=== PATIENT | female | born 1960 | race Caucasian/White ===

== ENCOUNTER 2017-02-23 04:47 | Emergency (ER) | payer BC, OTHER ==
[~2017-02-23] VITALS: Ht 162.6 cm; Wt 98.0 kg
[2017-02-23] MEDS ORDERED: traMADol 50 MG TAB PO ONE (05:45)
[2017-02-23] MEDS ORDERED: MORPHINE 10 MG/ML 1ML VIAL IM ONE (07:00)
[2017-02-23 07:05] LABS: BASO # 0.1 K/mm3 (0.0-0.2); EOS # 0.2 K/mm3 (0.0-0.50); EOS % 2.7 % (0.0-3.0); LARGE UNSTAINED CELL # 0.1 K/mm3 (0.0-0.4); LARGE UNSTAINED CELL % 1.3 % (0.0-4.0); LYMPH # 2.1 K/mm3 (1.5-4.5); LYMPH % 24.3 % (24.0-44.0); MEAN CORPUSCULAR HEMOGLOBIN 30.4 pg (27.0-33.0); MEAN CORPUSCULAR HGB CONC 33.3 g/dl (32.0-36.5); MEAN CORPUSCULAR VOLUME 91.5 fl (80.0-96.0); MONO # 0.4 K/mm3 (0.0-0.8); MONO % 4.4 % (0.0-5.0); NEUTROPHILS # 5.6 K/mm3 (1.8-7.7); NEUTROPHILS % 66.4 % (36.0-66.0); PLATELET COUNT, AUTOMATED 301 k/mm3 (150-450); RED CELL DISTRIBUTION WIDTH 12.5 % (11.5-14.5); WHITE BLOOD COUNT 8.5 K/mm3 (4.0-10.0)
[2017-02-23 07:53] LABS: ALBUMIN 3.4 GM/DL (3.2-5.2); ALBUMIN/GLOBULIN RATIO 0.87 (1.00-1.93); BILIRUBIN,DIRECT 0.1 MG/DL (0.0-0.2); BILIRUBIN,TOTAL 0.5 MG/DL (0.2-1.0); CALCIUM LEVEL 8.6 MG/DL (8.5-10.1); CREATININE FOR GFR 1.03 MG/DL (0.55-1.02); GLOMERULAR FILTRATION RATE 58.8 (>51); POTASSIUM SERUM 4.2 MEQ/L (3.5-5.1); TOTAL PROTEIN 7.3 GM/DL (6.4-8.2)
[2017-02-23] MEDS ORDERED: NORCOTAB PO (08:28)
[2017-02-23 09:55] VITALS: BP 147/82
== END 2017-02-23 09:55 | disposition home or self-care (01) ==
LOC: M ED 05:53
DX: K80.20 Calculus of gallbladder without cholecystitis without obstruction (principal); K76.0 Fatty (change of) liver, not elsewhere classified; K82.8 Other specified diseases of gallbladder

== ENCOUNTER → 2017-04-14 | Outpatient (CLI) | payer OTHER ==
[~2017-04-14] MED LIST: ACET1TAB17 PO; ASPI325T24 PO; LEVO100T5 PO; NORCOTAB PO; SING10TA32 PO
[2017-04-14 12:26] LABS: FREE T4 1.15 NG/DL (0.76-1.46)
== END ==
LOC: M SMT 07:58
PROVIDERS: ATTEND Family Medicine
DX: R73.01 Impaired fasting glucose (principal); E03.9 Hypothyroidism, unspecified

== ENCOUNTER 2017-05-19 03:43 | Emergency (ER) | payer OTHER ==
[~2017-05-19] VITALS: Ht 162.6 cm; Wt 95.0 kg
[~2017-05-19 03:43] MED LIST changes: -ACET1TAB17 PO; -ASPI325T24 PO; -LEVO100T5 PO; -SING10TA32 PO
[2017-05-19 03:48] VITALS: BP 181/111
[2017-05-19] MEDS ORDERED: SING10TA32 PO (03:52)
[2017-05-19] MEDS ORDERED: LEVO100T5 PO (03:52)
[2017-06-19] MEDS ORDERED: ASPI325T24 PO (08:40)
[2017-06-19] MEDS ORDERED: ACET1TAB17 PO (08:40)
== END 2017-05-19 06:10 | disposition left against medical advice (07) ==
LOC: M ED 03:43
DX: R10.9 Unspecified abdominal pain (principal); Z53.29 Procedure and treatment not carried out because of patient's decision for other reasons

== ENCOUNTER → 2017-06-19 | Outpatient (CLI) | payer OTHER ==
[~2017-06-19] MED LIST changes: +ACET1TAB17 PO; +ASPI325T24 PO; +LEVO100T5 PO; +SING10TA32 PO
--- NOTE | 2017-06-20 23:17 | ECGEPIP ---
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
== END ==
LOC: M EKG 17:47
PROVIDERS: ATTEND Anesthesiology
DX: I10 Essential (primary) hypertension (principal)

== ENCOUNTER 2017-06-26 10:27 | Day surgery (SDC) | payer OTHER ==
[~2017-06-26] VITALS: Ht 162.6 cm; Wt 104.3 kg
[2017-06-26] MEDS ORDERED: LR 1,000 ML IV ONE (10:45)
[2017-06-26] MEDS ORDERED: PROPOFOL 200 MG/20 ML VIAL As Ordered ONE (12:26)
[2017-06-26] MEDS ORDERED: dexameTHASONE 4 MG/ML 1ML VIAL (J1100) As Ordered ONE (12:26)
[2017-06-26] MEDS ORDERED: ONDANSETRON 4MG/2ML VIAL (J2405) As Ordered ONE (12:26)
[2017-06-26] MEDS ORDERED: LIDOCAINE 2% INJ 100 MG/5 ML SDV (FOR ANES.) As Ordered ONE (12:26)
[2017-06-26] MEDS ORDERED: ROCURONIUM BROMIDE 50 MG/5 ML VIAL/SYRINGE As Ordered ONE ×2 (12:26→15:05)
[2017-06-26] MEDS ORDERED: MIDAZOLAM INJ 2 MG/2 ML VIAL (J2250) As Ordered ONE (12:26)
[2017-06-26] MEDS ORDERED: fentaNYL 250 MCG/5 ML INJECTION (J3010) As Ordered ONE (12:26)
[2017-06-26] MEDS ORDERED: BUPIVACAINE HCL 0.25% 30 ML VIAL As Ordered ONE (12:58)
[2017-06-26] MEDS ORDERED: SUCCINYLCHOLINE 100 MG/5 ML SYRINGE (J0330) As Ordered ONE (14:10)
[2017-06-26] MEDS ORDERED: NEOSTIGMINE 10 MG/10 ML VIAL (J2710) As Ordered ONE ×2 (14:16→15:30)
[2017-06-26] MEDS ORDERED: GLYCOPYRROLATE INJ 0.2 MG/ML 2 ML VIAL As Ordered ONE ×2 (14:16→15:30)
[2017-06-26] MEDS ORDERED: HYDROmorphone HCL 2 MG/ML 1ML VIAL (J1170) As Ordered ONE (14:29)
[2017-06-26] MEDS ORDERED: LABETALOL HCL 100 MG/20 ML VIAL As Ordered ONE (15:02)
[2017-06-26] MEDS ORDERED: HYDROmorphone HCL 1 MG/ML SYRINGE (J1170) As Ordered ONE (16:17)
[2017-06-26] MEDS: HYDROmorphone HCL 1 MG/ML SYRINGE (J1170) IV PRN ×2 (16:20→16:40)
[2017-06-26] MEDS ORDERED: NORCO, ANEXSIA 5/325MG TABLET (HYDROcodone/ACETAMINOPHEN) PO PRN (16:30)
[2017-06-26] MEDS ORDERED: fentaNYL 100 MCG/2 ML INJECTION (J3010) IV PRN (16:30)
[2017-06-26] MEDS ORDERED: LR 1,000 ML IV SCH (16:30)
[2017-06-26] MEDS ORDERED: IBUPROFEN 600 MG TAB PO PRN (16:30)
[2017-06-26] MEDS ORDERED: PERCOCET 5MG/325MG TAB PO PRN (16:30)
[2017-06-26] MEDS ORDERED: ONDANSETRON 4MG/2ML VIAL (J2405) IV PRN (16:30)
[2017-06-26] MEDS ORDERED: ACETAMINOPHEN TAB 650MG DOSE (2X325MG) PO PRN (16:30)
[2017-06-26] MEDS ORDERED: METOCLOPRAMIDE INJ 10MG/2ML VIAL (J2765) IV PRN (16:30)
[2017-06-26 19:20] VITALS: BP 150/88
--- NOTE | 2017-06-28 11:29 | RO ---
DATE OF PROCEDURE: 06/26/2017 PREOPERATIVE DIAGNOSIS: Symptomatic gallstones. POSTOPERATIVE DIAGNOSIS: Cholelithiasis with chronic cholecystitis and cystic duct obstruction with hydrops of the gallbladder. PROCEDURE PERFORMED: laparoscopic cholecystectomy. SURGEON: Aaron Prescott MD ASSISTANT SIGNAL MAINTAINER: Gumaro Baugh DO, OGME-1 Resident ANESTHESIA: General. INDICATIONS FOR PROCEDURE: The patient is a 56-year-old woman who has been having episodes of right upper quadrant abdominal pain typical for biliary colic. She had an ultrasound that confirmed cholelithiasis and she is now for a laparoscopic cholecystectomy. OPERATIVE PROCEDURE: The patient was placed under general endotracheal anesthesia. The patient's abdomen was prepped and draped in a sterile fashion. 0.25% Marcaine was infiltrated at the trocar sites prior to insertion. A short supraumbilical midline incision was made and deepened through the abundant subcutaneous fat. The fascia was opened in the midline and a Marci cannula was inserted. The abdomen was inflated with carbon dioxide gas. The laparoscope was placed. Initial examination showed a normal-appearing liver. Visualized portions of the small and large bowel appeared normal. Two 5 mm trocars were placed in the right upper quadrant and a third 5 mm trocar was placed in the left upper quadrant. The omental fat and the subhepatic space was depressed inferiorly and the gallbladder was identified. The gallbladder appeared to be thick walled and pale in coloration and not filled. The gallbladder was grasped and elevated. Dissection was begun at the gallbladder neck. Dissection proceeded on both the medial and lateral aspects of the gallbladder neck and the cystic duct was identified. Branches of the cholecystic artery were identified and these were clipped with hemoclips and divided. With dissection, it was clear that the proximal portion of the cystic duct was filled with stones. I elected therefore to carry the dissection further distally to try to get to a point where the cystic duct was clear of stones. This required working distally an additional several centimeters and in this area, there was some scarring identified around the cystic duct. This required further dissection of the cholecystic artery with additional clips placed. Ultimately it was possible to get to a point where the cystic duct seemed to be clear of stone material. The cystic duct was transected with scissors at the distal extent of the duct that seemed to contain debris. The presence of stones within the cystic duct was confirmed and these were dislodged by manipulation with a Maryland clamp and there was a small amount of back flow of bile. The cystic duct stump appeared to be slightly too large at that point to be readily controlled with a hemoclip and it was necessary to place an Endoloop. This proved to be somewhat difficult because of the positioning of the cystic duct stump, but ultimately a #0 Vicryl Endoloop was placed securely around the end of the cystic duct with excellent control. Once this had been accomplished, and it was ensured that there was no bleeding from the cholecystic artery branches, the gallbladder was dissected free from the gallbladder bed using cautery dissection. Toward the fundus the gallbladder was entered and a small amount of clear and colorless fluid was released from the gallbladder confirming a diagnosis of hydrops of the gallbladder consistent with longstanding cystic duct obstruction. Once the gallbladder had been freed, this was placed within an Endopouch. A second small portion of tissue consisting of a segment of the cystic duct was also placed within the pouch. The right upper quadrant was copiously irrigated with saline and inspection showed no evidence of bleeding or bile leak. The patient was returned to a flat position and the abdomen was deflated. The trocars were all removed. The gallbladder was recovered through the Ghotra site and sent for permanent pathology. The fascia at the Ghotra site was closed with interrupted simple sutures of #2-0 Vicryl. The skin incisions were all closed with buried #5-0 Vicryl and Steri-Strips. Light dressings were applied. The patient tolerated the procedure well without apparent complication. She was awakened in the operating room, extubated and moved to the recovery room in stable condition. ALICE
== END 2017-06-26 19:20 | disposition home or self-care (01) ==
LOC: M SDC 10:27
PROVIDERS: ATTEND Surgery
DX: K80.11 Calculus of gallbladder with chronic cholecystitis with obstruction (principal); E03.9 Hypothyroidism, unspecified; I10 Essential (primary) hypertension; F32.9 Major depressive disorder, single episode, unspecified; G43.909 Migraine, unspecified, not intractable, without status migrainosus; E66.01 Morbid (severe) obesity due to excess calories; R73.03 Prediabetes; R06.83 Snoring; Z68.39 Body mass index [BMI] 39.0-39.9, adult; Z79.899 Other long term (current) drug therapy; Z79.82 Long term (current) use of aspirin; Z78.0 Asymptomatic menopausal state
CPT/HCPCS: 47562; 88304; J0330; J1100; J1170; J2250; J2405; J2710; J3010

== ENCOUNTER → 2017-11-14 | Outpatient (CLI) | payer OTHER ==
[2017-11-14 09:54] LABS: MALB URINE SIEMENS 47.7 MG/L; MAU/CREAT RATIO 26.7 MCG/MG (0.0-30.0)
[2017-11-14 09:55] LABS: ANION GAP 8 MEQ/L (8-16); BLOOD UREA NITROGEN 10 MG/DL (7-18); CALCIUM LEVEL 8.4 MG/DL (8.5-10.1); CARBON DIOXIDE LEVEL 25 MEQ/L (21-32); CHLORIDE LEVEL 107 MEQ/L (98-107); CHOLESTEROL LEVEL 229 MG/DL (<200); CREATININE FOR GFR 0.88 MG/DL (0.55-1.30); GLOMERULAR FILTRATION RATE > 60.0 (>51); GLUCOSE, FASTING 162 MG/DL (70-100); HDL CHOLESTEROL 48 MG/DL (>40); NON-HDL-C 181 MG/DL; POTASSIUM SERUM 4.3 MEQ/L (3.5-5.1); SODIUM LEVEL 140 MEQ/L (136-145); TRIGLYCERIDES LEVEL 155 MG/DL (<150)
[2017-11-14 10:43] LABS: ESTIMATED AVERAGE GLUCOSE 177 MG/DL (60-110); HEMOGLOBIN A1c 7.8 %
== END ==
LOC: M LAB 08:16
DX: E03.9 Hypothyroidism, unspecified (principal); E11.69 Type 2 diabetes mellitus with other specified complication; I10 Essential (primary) hypertension; Z13.220 Encounter for screening for lipoid disorders
CPT/HCPCS: 84443

== ENCOUNTER → 2017-12-02 | Outpatient (CLI) | payer OTHER | LOC: M WHC 07:52 | DX: Z12.31 Encounter for screening mammogram for malignant neoplasm of breast (principal); Z78.0 Asymptomatic menopausal state ==

== ENCOUNTER → 2017-12-18 | Outpatient (REF) | payer OTHER | LOC: M SFHCPLAZ 11:25 | DX: Z12.4 Encounter for screening for malignant neoplasm of cervix (principal); N95.2 Postmenopausal atrophic vaginitis | CPT/HCPCS: G0123 ==

== ENCOUNTER → 2017-12-31 | Outpatient (CLI) | payer OTHER ==
[2017-12-31 09:32] LABS: ALBUMIN 3.8 GM/DL (3.2-5.2); ALBUMIN/GLOBULIN RATIO 1.06 (1.00-1.93); ALKALINE PHOSPHATASE 79 U/L (45-117); ALT/SGPT 40 U/L (12-78); AST/SGOT 25 U/L (7-37); BILIRUBIN,DIRECT 0.1 MG/DL (0.0-0.2); BILIRUBIN,TOTAL 0.6 MG/DL (0.2-1.0); TOTAL PROTEIN 7.4 GM/DL (6.4-8.2)
== END ==
LOC: M LAB 08:19
DX: E78.2 Mixed hyperlipidemia (principal)
CPT/HCPCS: 80076

== ENCOUNTER → 2018-02-22 | Outpatient (CLI) | payer OTHER | LOC: M LAB 07:38 | DX: E03.9 Hypothyroidism, unspecified (principal) ==

== ENCOUNTER 2018-07-07 18:18 | Emergency (ER) | payer OTHER ==
[2018-07-07] MEDS: ALBUTEROL SULFATE 2.5 MG/0.5 ML INH NEB SOLN NEB (21:20)
[2018-07-07] MEDS: DOXYCYCLINE HYCLATE 100 MG TAB PO (21:56)
== END 2018-07-07 22:05 | disposition home or self-care (01) ==
LOC: M ED 18:18
DX: J18.1 Lobar pneumonia, unspecified organism (principal); H66.93 Otitis media, unspecified, bilateral; R73.03 Prediabetes; I10 Essential (primary) hypertension; E78.5 Hyperlipidemia, unspecified; E03.9 Hypothyroidism, unspecified; Z87.442 Personal history of urinary calculi; Z79.82 Long term (current) use of aspirin; Z79.84 Long term (current) use of oral hypoglycemic drugs; Z79.899 Other long term (current) drug therapy
CPT/HCPCS: 71046

== ENCOUNTER 2018-07-27 15:35 | Emergency (ER) | payer OTHER ==
[2018-07-27] MEDS: BENZONATATE 100 MG CAP PO (17:17)
[2018-07-27] MEDS: METHOCARBAMOL 750 MG TAB PO (17:17)
[2018-07-27] MEDS: NAPROXEN 250 MG TAB PO (17:18)
[2018-07-27 17:38] LABS: BASO # 0.1 10^3/uL (0.0-0.2); BASO % 0.8 % (0.0-1.0); EOS # 0.6 10^3/uL (0.0-0.50); HEMATOCRIT 46.3 % (36.0-47.0); HEMOGLOBIN 15.3 g/dl (12.0-15.5); IMMATURE GRANULOCYTE % 0.4 % (0-3.0); LYMPH # 3.4 10^3/uL (1.5-4.5); LYMPH % 30.1 % (24.0-44.0); MEAN CORPUSCULAR HEMOGLOBIN 29.2 pg (27.0-33.0); MEAN CORPUSCULAR VOLUME 88.4 fl (80.0-96.0); MONO # 0.8 10^3/uL (0.0-0.8); MONO % 7.4 % (0.0-5.0); NEUTROPHILS # 6.3 10^3/uL (1.8-7.7); NEUTROPHILS % 56.3 % (36.0-66.0); PLATELET COUNT, AUTOMATED 358 10^3/uL (150-450); RED BLOOD COUNT 5.24 10^6/uL (4.00-5.40); RED CELL DISTRIBUTION WIDTH 13.2 % (11.5-14.5); WHITE BLOOD COUNT 11.1 10^3/uL (4.0-10.0)
[2018-07-27 17:56] LABS: ANION GAP 10 MEQ/L (8-16); BLOOD UREA NITROGEN 10 MG/DL (7-18); CALCIUM LEVEL 8.9 MG/DL (8.5-10.1); CARBON DIOXIDE LEVEL 25 MEQ/L (21-32); CHLORIDE LEVEL 101 MEQ/L (98-107); CREATININE FOR GFR 0.92 MG/DL (0.55-1.30); GLOMERULAR FILTRATION RATE > 60.0 (>51); GLUCOSE, FASTING 136 MG/DL (70-100); SODIUM LEVEL 136 MEQ/L (136-145)
== END 2018-07-27 18:54 | disposition home or self-care (01) ==
LOC: M ED 15:35
DX: J06.9 Acute upper respiratory infection, unspecified (principal); S39.012A Strain of muscle, fascia and tendon of lower back, initial encounter; X58.XXXA Exposure to other specified factors, initial encounter; Y92.89 Other specified places as the place of occurrence of the external cause; E11.9 Type 2 diabetes mellitus without complications; I10 Essential (primary) hypertension; E03.9 Hypothyroidism, unspecified; R51 Headache; Z87.442 Personal history of urinary calculi; Z79.899 Other long term (current) drug therapy; Z79.84 Long term (current) use of oral hypoglycemic drugs
CPT/HCPCS: 71046

== ENCOUNTER → 2018-11-19 | Outpatient (REF) | payer OTHER ==
[~2018-11-19] MED LIST changes: -ACET1TAB17 PO; +ACET1TAB55 PO; -ASPI325T24 PO; +ASPI325T25 PO; +ATOR1TAB21; +CHERSYP3 PO; +DOXY100C37 PO; +LISI10TA4; +METF-839; +NAPR-50 PO; +ROBA500T PO; +TESS100C PO; +VENTAER INH
[2018-11-19 18:55] LABS: BLOOD UREA NITROGEN 10 MG/DL (7-18); CALCIUM LEVEL 8.3 MG/DL (8.5-10.1); CARBON DIOXIDE LEVEL 28 MEQ/L (21-32); CHLORIDE LEVEL 101 MEQ/L (98-107); GLOMERULAR FILTRATION RATE > 60.0 (>51); GLUCOSE, FASTING 159 MG/DL (70-100); POTASSIUM SERUM 4.3 MEQ/L (3.5-5.1); SODIUM LEVEL 137 MEQ/L (136-145)
[2018-11-19 19:01] LABS: HEMOGLOBIN A1c 8.4 %
[2018-11-19 19:13] LABS: MAU/CREAT RATIO 41.2 MCG/MG (0.0-30.0)
== END ==
LOC: M SFHCPLAZ 15:25
PROVIDERS: ATTEND Family Medicine
DX: E11.69 Type 2 diabetes mellitus with other specified complication (principal); I10 Essential (primary) hypertension; E03.9 Hypothyroidism, unspecified

== ENCOUNTER → 2019-02-06 | Outpatient (REF) | payer OTHER ==
[~2019-02-06] MED LIST changes: +ASPI-255 PO; -ASPI325T25 PO; +HYDR-3715 PO; -NAPR-50 PO; +NAPR-837 PO; -NORCOTAB PO
== END ==
LOC: M LAB REF 10:36
PROVIDERS: ATTEND Physician Assistant
DX: N39.0 Urinary tract infection, site not specified (principal)

== ENCOUNTER → 2019-04-28 | Outpatient (CLI) | payer OTHER ==
--- NOTE | 2019-04-28 18:49 | REP ---
REASON: Low back pain. Six views of the cervical spine were obtained. There is mild disc space narrowing at every level. Vertebral body height and alignment is within normal limits. There is minimal anterior lipping at every level. There is no evidence of spondylolysis or spondylolisthesis. The pedicles are intact bilaterally. IMPRESSION: Discogenic changes as described above. Electronically Signed by Jasbir Carrington DO 04/28/2019 07:37 P
== END ==
LOC: M ADAMS 17:34
PROVIDERS: ATTEND Physician Assistant Medical
DX: M51.37 Other intervertebral disc degeneration, lumbosacral region (principal); M54.5 Low back pain

== ENCOUNTER → 2019-05-06 | Outpatient (REF) | payer OTHER ==
[2019-05-06 17:02] LABS: MALB URINE SIEMENS 36.1 MG/L; MAU/CREAT RATIO 14.9 MCG/MG (0.0-30.0)
[2019-05-06 17:31] LABS: HEMOGLOBIN A1c 8.6 %
== END ==
LOC: M SFHCPLAZ 14:21
PROVIDERS: ATTEND Family Medicine
DX: E11.69 Type 2 diabetes mellitus with other specified complication (principal); E03.9 Hypothyroidism, unspecified

== ENCOUNTER → 2019-08-04 | Outpatient (CLI) | payer OTHER ==
[2019-08-04 18:03] LABS: HEMOGLOBIN A1c 7.8 %
== END ==
LOC: M LAB 16:49
PROVIDERS: ATTEND Family Medicine
DX: E11.69 Type 2 diabetes mellitus with other specified complication (principal)

== ENCOUNTER → 2019-12-05 | Outpatient (CLI) | payer OTHER ==
[2019-12-05 07:24] LABS: HEMOGLOBIN A1c 7.3 %
[2019-12-05 07:39] LABS: BLOOD UREA NITROGEN 14 MG/DL (7-18); CALCIUM LEVEL 8.7 MG/DL (8.8-10.2); CARBON DIOXIDE LEVEL 27 MEQ/L (21-32); CHLORIDE LEVEL 106 MEQ/L (98-107); CREATININE FOR GFR 0.92 MG/DL (0.55-1.30); GLOMERULAR FILTRATION RATE > 60.0 (>45); GLUCOSE, FASTING 135 MG/DL (70-100); POTASSIUM SERUM 4.3 MEQ/L (3.5-5.1); SODIUM LEVEL 138 MEQ/L (136-145); THYROID STIMULATING HORMONE 0.073 uIU/ML (0.358-3.740)
== END ==
LOC: M LAB 06:25
PROVIDERS: ATTEND Family Medicine
DX: E11.9 Type 2 diabetes mellitus without complications (principal)

== ENCOUNTER → 2020-02-21 | Outpatient (CLI) | payer OTHER ==
[~2020-02-21] MED LIST changes: -ATOR1TAB21; +ATOR1TAB21 PO; +LEXA1TAB PO; -METF-839; +METF-839 PO; +TRUL10IN SC
== END ==
LOC: M LABSMTC 11:59
PROVIDERS: ATTEND Anesthesiology
DX: Z03.818 Encounter for observation for suspected exposure to other biological agents ruled out (principal); Z11.59 Encounter for screening for other viral diseases
CPT/HCPCS: C9803; U0003

== ENCOUNTER 2020-02-24 06:48 | Day surgery (SDC) | payer OTHER ==
[~2020-02-24] VITALS: Ht 160 cm; Wt 103.0 kg
[~2020-02-24 06:48] MED LIST changes: +NS 1,000 ML IV ONE
[2020-02-24] MEDS ORDERED: propofoL 200 MG/20 ML VIAL As Ordered ONE (07:09)
[2020-02-24] MEDS ORDERED: LIDOCAINE 2% 100MG/5ML SDV (FOR ANES.) As Ordered ONE (07:09)
--- NOTE | 2020-02-24 08:36 | ROOR ---
Patient Name: Joy Wheeler Procedure Date: 02/24/2020 7:58 AM Date of : 1960 Age: 59 Room: [facility] Gender: Female Note Status: Finalized Procedure: Colonoscopy Indications: Screening for colorectal malignant neoplasm Providers: Bandar Neal MD Referring MD: Leighann Ellis MD Requesting Provider: Medicines: Monitored Anesthesia Care Complications: No immediate complications. Procedure: Pre-Anesthesia Assessment: - Prior to the procedure, a History and Physical was performed, and patient medications and allergies were reviewed. The patient is competent. The risks and benefits of the procedure and the sedation options and risks were discussed with the patient. All questions were answered and informed consent was obtained. Patient identification and proposed procedure were verified by the physician, the nurse and the anesthesiologist in the procedure room. Mental Status Examination: alert and oriented. Airway Examination: normal oropharyngeal airway and neck mobility. Respiratory Examination: clear to auscultation. CV Examination: normal. Prophylactic Antibiotics: The patient does not require prophylactic antibiotics. Prior Anticoagulants: The patient has taken no previous anticoagulant or antiplatelet agents. ASA Grade Assessment: III - A patient with severe systemic disease. After reviewing the risks and benefits, the patient was deemed in satisfactory condition to undergo the procedure. The anesthesia plan was to use monitored anesthesia care (MAC). Immediately prior to administration of medications, the patient was re-assessed for adequacy to receive sedatives. The heart rate, respiratory rate, oxygen saturations, blood pressure, adequacy of pulmonary ventilation, and response to care were monitored throughout the procedure. The physical status of the patient was re-assessed after the procedure. The Colonoscope was introduced through the anus and advanced to the terminal ileum, with identification of the appendiceal orifice and IC valve. The colonoscopy was performed without difficulty. The patient tolerated the procedure well. The quality of the bowel preparation was good. The terminal ileum, ileocecal valve, appendiceal orifice, and rectum were photographed. Scope insertion time was 3 minutes. Scope withdrawal time was 8 minutes. The total duration of the procedure was 12 minutes. Findings: The perianal and digital rectal examinations were normal. The terminal ileum appeared normal. Four sessile polyps were found in the recto-sigmoid colon and transverse colon. The polyps were 5 to 8 mm in size. These polyps were removed with a cold snare. Resection and retrieval were complete. Verification of patient identification for the specimen was done by the physician and nurse using the patient's name, date and medical record number. Estimated blood loss was minimal. Non-bleeding external and internal hemorrhoids were found during retroflexion. The hemorrhoids were medium-sized. Impression: - The examined portion of the ileum was normal. - Four 5 to 8 mm polyps at the recto-sigmoid colon and in the transverse colon, removed with a cold snare. Resected and retrieved. - Non-bleeding external and internal hemorrhoids. Recommendation: - Patient has a contact number available for emergencies. The signs and symptoms of potential delayed complications were discussed with the patient. Return to normal activities tomorrow. Written discharge instructions were provided to the patient. - High fiber diet. - Continue present medications. - Await pathology results. - Repeat colonoscopy in 3 - 5 years for surveillance. - Telephone GI clinic for pathology results in 2 weeks. - Return to primary care physician. Bandar Neal MD Bandar Neal MD 02/24/2020 8:36:21 AM Electronically signed by Bandar Neal MD Number of Addenda: 0 Note Initiated On: 02/24/2020 7:58 AM Estimated Blood Loss: Estimated blood loss was minimal.
[2020-02-24 08:50] VITALS: BP 138/74
== END 2020-02-24 08:56 | disposition home or self-care (01) ==
LOC: M OPP 06:48
PROVIDERS: ATTEND Internal Medicine Gastroenterology
DX: Z12.11 Encounter for screening for malignant neoplasm of colon (principal); K63.5 Polyp of colon; K64.8 Other hemorrhoids; I10 Essential (primary) hypertension; E11.9 Type 2 diabetes mellitus without complications; E03.9 Hypothyroidism, unspecified; Z79.899 Other long term (current) drug therapy

== ENCOUNTER → 2020-05-27 | Outpatient (CLI) | payer OTHER ==
[~2020-05-27] MED LIST changes: -NS 1,000 ML IV ONE
== END ==
LOC: M LABSMTC 10:26
PROVIDERS: ATTEND Anesthesiology
DX: Z01.818 Encounter for other preprocedural examination (principal); Z11.59 Encounter for screening for other viral diseases; Z20.828 Contact with and (suspected) exposure to other viral communicable diseases
CPT/HCPCS: C9803; U0003

== ENCOUNTER → 2020-05-31 | Day surgery (SDC) | payer OTHER ==
[~2020-05-31] VITALS: Ht 160 cm; Wt 107.5 kg
[~2020-05-31] MED LIST changes: +BSS IRR 500ML/OMIDRIA 4ML IRR BAG (OR ONLY) (J1097 PER ML) As Ordered ONE; +CEFUROXIME 1MG/0.1ML INTRACAMERAL INJ As Ordered ONE; +DUOVISC (0.50ML VISCOAT/0.55ML PROVISC) OPHTH KIT As Ordered ONE; +MIDAZOLAM INJ 2MG/2ML VIAL (J2250 PER 1MG) As Ordered ONE; +OFLOXACIN 0.3 % (OCUFLOX) OPTH SOL 5ML As Ordered ONE; +OFLOXACIN 0.3 % (OCUFLOX) OPTH SOL 5ML OS ONE; +PHENYLEPHRINE 2.5% OPHTH SOL 2ML OS ONE; +POVIDONE-IODINE 5% OPHTH PREP SOL 30ML As Ordered ONE; +PROPARACAINE 0.5% OPHTH SOL 15ML OS ONE; +TROPICAMIDE 1% OPHTH SOLN 2ML As Ordered ONE; +TROPICAMIDE 1% OPHTH SOLN 2ML OS ONE; +fentaNYL 250 MCG/5 ML INJECTION (J3010) As Ordered ONE; +hydrALAZINE 20MG/ML 1ML VIAL (J0360 PER 20MG) As Ordered ONE
[2020-05-31 09:50] VITALS: BP 140/65
== END | disposition home or self-care (01) ==
LOC: M SDC 06:53
PROVIDERS: ATTEND Ophthalmology
DX: H25.12 Age-related nuclear cataract, left eye (principal); E03.9 Hypothyroidism, unspecified; E11.9 Type 2 diabetes mellitus without complications; E66.9 Obesity, unspecified; G43.909 Migraine, unspecified, not intractable, without status migrainosus; I10 Essential (primary) hypertension; M12.9 Arthropathy, unspecified; R06.83 Snoring; Z68.41 Body mass index [BMI] 40.0-44.9, adult; Z78.0 Asymptomatic menopausal state; Z79.84 Long term (current) use of oral hypoglycemic drugs; Z79.899 Other long term (current) drug therapy; Z96.1 Presence of intraocular lens; Z98.41 Cataract extraction status, right eye
CPT/HCPCS: 66984; J0360; J1097; J2250; J3010

== ENCOUNTER → 2020-10-12 | Outpatient (CLI) | payer SELFPAY ==
[~2020-10-12] MED LIST changes: -BSS IRR 500ML/OMIDRIA 4ML IRR BAG (OR ONLY) (J1097 PER ML) As Ordered ONE; -CEFUROXIME 1MG/0.1ML INTRACAMERAL INJ As Ordered ONE; -DUOVISC (0.50ML VISCOAT/0.55ML PROVISC) OPHTH KIT As Ordered ONE; -MIDAZOLAM INJ 2MG/2ML VIAL (J2250 PER 1MG) As Ordered ONE; -OFLOXACIN 0.3 % (OCUFLOX) OPTH SOL 5ML As Ordered ONE; -OFLOXACIN 0.3 % (OCUFLOX) OPTH SOL 5ML OS ONE; -PHENYLEPHRINE 2.5% OPHTH SOL 2ML OS ONE; -POVIDONE-IODINE 5% OPHTH PREP SOL 30ML As Ordered ONE; -PROPARACAINE 0.5% OPHTH SOL 15ML OS ONE; -TROPICAMIDE 1% OPHTH SOLN 2ML As Ordered ONE; -TROPICAMIDE 1% OPHTH SOLN 2ML OS ONE; -fentaNYL 250 MCG/5 ML INJECTION (J3010) As Ordered ONE; -hydrALAZINE 20MG/ML 1ML VIAL (J0360 PER 20MG) As Ordered ONE
== END ==
LOC: M LABSMTC 12:20
PROVIDERS: ATTEND Pediatrics
DX: Z20.822 Contact with and (suspected) exposure to COVID-19 (principal)

== ENCOUNTER → 2021-04-05 | Outpatient (CLI) | payer OTHER ==
[~2021-04-05] MED LIST changes: -DOXY100C37 PO; +DOXY1CAP62 PO; +LISI10TA22; -LISI10TA4
[2021-04-05 15:48] LABS: BLOOD UREA NITROGEN 9 MG/DL (7-18); CALCIUM LEVEL 8.5 MG/DL (8.8-10.2); CARBON DIOXIDE LEVEL 31 MEQ/L (21-32); CHLORIDE LEVEL 100 MEQ/L (98-107); CREATININE FOR GFR 0.93 MG/DL (0.55-1.30); GLOMERULAR FILTRATION RATE > 60.0 (>45); GLUCOSE, FASTING 141 MG/DL (70-100); POTASSIUM SERUM 4.3 MEQ/L (3.5-5.1); SODIUM LEVEL 137 MEQ/L (136-145)
[2021-04-05 16:04] LABS: HEMOGLOBIN A1c 7.8 %
[2021-04-05 16:29] LABS: MALB URINE SIEMENS 22.7 MG/L; MAU/CREAT RATIO 9.3 MCG/MG (0.0-30.0)
== END ==
LOC: M PLALAB 12:58
PROVIDERS: ATTEND Family Medicine
DX: I10 Essential (primary) hypertension (principal); E11.69 Type 2 diabetes mellitus with other specified complication

== ENCOUNTER → 2021-06-07 | Outpatient (CLI) | payer OTHER | LOC: M LABSMTC 11:13 | PROVIDERS: ATTEND Pediatrics | DX: Z20.828 Contact with and (suspected) exposure to other viral communicable diseases (principal); Z11.59 Encounter for screening for other viral diseases | CPT/HCPCS: C9803; U0003 ==

== ENCOUNTER 2021-06-18 17:33 | Inpatient (IN) | payer OTHER ==
[~2021-06-18] VITALS: Ht 162.6 cm; Wt 103.6 kg
[~2021-06-18 17:33] MED LIST changes: +DOXY-443 PO; -DOXY1CAP62 PO
[2021-06-18] MEDS ORDERED: ACETAMINOPHEN 325 MG TAB PO ONE (17:50)
[2021-06-18 18:23] LABS: VENOUS BASE EXCESS -3.1 (-2.0-2.0); VENOUS HCO3 20.8 MEQ/L (23.0-27.0); VENOUS O2 SATURATION 57.3 % (60.0-80.0); VENOUS PARTIAL PRESSURE CO2 34.3 mmHg (38.0-50.0); VENOUS PARTIAL PRESSURE O2 32.1 mmHg (30.0-50.0); VENOUS PH 7.401 UNITS (7.330-7.430); VENOUS STANDARD HCO3 20.9 MEQ/L; VENOUS TOTAL CO2 21.9 MEQ/L (24.0-28.0)
--- NOTE | 2021-06-18 18:37 | REP ---
INDICATION: Coronavirus workup COMPARISON: 07/27/2018 TECHNIQUE: Portable AP view of the chest FINDINGS: Diffuse bilateral infiltrates consistent with COVID-19 pulmonary disease. No obvious effusion or pneumothorax. Cardiac silhouette is normal for portable technique. IMPRESSION: Diffuse bilateral infiltrates consistent with COVID-19 pulmonary disease. <Electronically signed by Shaheen Bustos > 06/18/21 [id number]
[2021-06-18 18:53] LABS: FIBRINOGEN 633 MG/DL (268-480); INR 1.14
[2021-06-18 18:54] LABS: PARTIAL THROMBOPLASTIN TIME 29.1 SECONDS (25.9-37.0)
[2021-06-18] MEDS ORDERED: AZITHROMYCIN INJ 500 MG, VIAL MATE ADAPTER 1 EACH in NS 250 ML IV ONE (19:00)
[2021-06-18] MEDS ORDERED: cefTRIAXone SOD 1 GM in D5W MINI-BAG PLUS 50 ML IV ONE (19:00)
[2021-06-18 19:08] LABS: ALBUMIN 2.5 GM/DL (3.2-5.2); ALT/SGPT 80 U/L (12-78); BLOOD UREA NITROGEN 13 MG/DL (7-18); CALCIUM LEVEL 8.7 MG/DL (8.8-10.2); CARBON DIOXIDE LEVEL 26 MEQ/L (21-32); CHLORIDE LEVEL 100 MEQ/L (98-107); CK-MB VALUE MASS < 1.0 NG/ML (<3.6); CPK CREATINE PHOSPHOKINASE 114 U/L (26-192); CREATININE FOR GFR 1.19 MG/DL (0.55-1.30); FERRITIN 1360 NG/ML (8-252); GLOMERULAR FILTRATION RATE 49.1 (>45); GLUCOSE, FASTING 239 MG/DL (70-100); LDH LACTATE DEHYDROGENASE 702 U/L (84-246); MAGNESIUM LEVEL 2.1 MG/DL (1.8-2.4); MB/CK RELATIVE INDEX 0.88 (< OR =4); POTASSIUM SERUM 3.9 MEQ/L (3.5-5.1); SODIUM LEVEL 134 MEQ/L (136-145); TOTAL PROTEIN 7.1 GM/DL (6.4-8.2); TROPONIN I < 0.02 NG/ML (< 0.10)
[2021-06-18 20:10] LABS: D-DIMER QUANT > 4000.0 ng/ml (<500)
[2021-06-18 20:32] LABS: BASO # 0.1 10^3/uL (0.0-0.2); BASO % 0.3 % (0.0-1.0); EOS % 0.2 % (0.0-3.0); HEMATOCRIT 41.2 % (36.0-47.0); HEMOGLOBIN 13.9 g/dl (12.0-15.5); LYMPH # 0.9 10^3/uL (1.5-5.0); LYMPH % 5.3 % (24.0-44.0); MEAN CORPUSCULAR HEMOGLOBIN 29.7 pg (27.0-33.0); MEAN CORPUSCULAR HGB CONC 33.7 g/dl (32.0-36.5); MONO # 0.4 10^3/uL (0.0-0.8); MONO % 2.5 % (2.0-8.0); NEUTROPHILS # 15.4 10^3/uL (1.5-8.5); NEUTROPHILS % 89.8 % (36.0-66.0); PLATELET COUNT, AUTOMATED 314 10^3/uL (150-450); RED BLOOD COUNT 4.68 10^6/uL (4.00-5.40); WHITE BLOOD COUNT 17.1 10^3/uL (4.0-10.0)
[2021-06-18] MEDS ORDERED: HumaLOG INSULIN (NovoLOG) PER UNIT SC SCH (21:00)
[2021-06-18] MEDS ORDERED: MAALOX 30 ML SUSP *UDC PO PRN (21:40)
[2021-06-18] MEDS ORDERED: MOM 30ML SUSPENSION UDC PO PRN (21:40)
--- NOTE | 2021-06-18 21:42 | HPEPDOC ---
[facility] Medical History & Physical Date of Admission Jun 18, 2021 Date of Service: Jun 18, 2021 Primary Care Physician: FRANCO DUNN MD Attending Physician: ROWENA NUNES MD History and Physical TIME OF SERVICE: 1140PM CHIEF COMPLAINT: DYSPNEA HISTORY OF PRESENT ILLNESS: was not diagnosed against COVID-19; on Jun 07 she was diagnosed with COVID. Today she was brought to the ER EMS for evaluation of shortness of breath; her initial O2 sats were in the 80s on RA therefore she was started on CPAP en route to the hospital. At the time of my assessment she was also c/o cough, chest pain and diarrhea. She denies vomiting, losing her sense of taste, or having swelling of her legs. Her boyfriend also has COVID. REVIEW OF SYSTEMS: 10-point review of systems negative except as listed in HPI PAST MEDICAL/ SURGICAL HISTORY: Migraines, essential HTN, Depression, hypothyroidism, nephrolithiasis, cataracts, NIDDM, DLP, Chronic HFpEF (grade 1), Class 1 obesity, C-sections x 2, cholecystectomy, cataract surgery (left eye) FAMILY HISTORY: Father - CKD, [place], CVA / Mother CKD, HTN, DM SOCIAL HISTORY: She doesnt smoke or use alcohol ALLERGIES: Please see below. HOME MEDICATIONS: Please see below. PHYSICAL EXAMINATION: Vital Signs Date Time Temp Pulse Resp B/P (MAP) Pulse Ox O2 Delivery O2 Flow Rate FiO2 06/18/21 18:03 92 06/18/21 18:04 101.4 24 178/98 (124) 93 Non-Rebreather 15.0 06/18/21 18:46 100 GENERAL APPEARANCE: well-nourished and developed/ listless HEENT: EOMI / MMM&P / NC in place CARDIOVASCULAR: RRR/NMRG LUNGS: CTAB on RA ABDOMEN: contour convex/ soft & NT w palpation MUSCULOSKELETAL: NCAT / JEANINE x 4 extremities INTEGUMENT: NEUROLOGICAL: CN 2-12 grossly intact / speech not dysarthric PSYCHIATRIC: A&O x 3 / able to understand and follow all commands LABORATORY DATA: IMAGING: Chest xray IMPRESSION: Diffuse bilateral infiltrates consistent with COVID-19 pulmonary disease. MICROBIOLOGY: Respiratory panel + COVID 19 ASSESSMENT: is a 60 yr old F w Migraines, essential HTN, Depression, hypothyroidism, nephrolithiasis, cataracts, NIDDM, DLP, Chronic HFpEF (grade 1) admitted for sepsis & hypoxemia 2/2 COVID 19 PNA. PLAN: 1 Sepsis 2/2 COVID 19 SIRS criteria: Temp >101 / WBC >12 Plan: admit to medical floor / telemetry / Acetaminophen PRN for fever / IVF target MAP at of least 65 to 70 / f/u Is and Os with target UOP of at least 0.5 ml/kg/H / f/u FSBS w target serum glucose 140-180 while acutely ill / no abx bc the cause is viral 2 Hypoxemia 2/2 COVID 19 PNA Plan: continuous pulse ox / supplemental O2 (target O2 sats between 92-95%) / contact & air borne precautions / bc her D-DIMER >5000 will check CTA to r/o PE / c/w dexamethasone / she is out of the window for Remdesivir / the day time team can call Pulm or ID to discuss Baricitinb 3 Migraines Plan: monitor 4 essential HTN / Chronic HFpEF (grade 1) Plan: resume home meds 5 Depression Plan: resume home meds 6 hypothyroidism Plan: resume home meds 7 NIDDM Plan: diabetic diet / f/u accuchecks / / hypoglycemia protocol / sliding scale insulin / hold oral anti-glycemic / f/u A1C (target A1C is <7 to 6.5% ) 8 Class 1 obesity Complicates care DVT px w lovenox and ASA Dispo: home after at least 2 midnights stay Home Medications Scheduled Atorvastatin Calcium (Atorvastatin Calcium) 20 Mg Tab, 20 MG PO DAILY Dulaglutide (Trulicity) 1.5 Mg/0.5 Ml Pen.injctr, 1.5 MG SC QWEEK SUNDAYS Escitalopram Oxalate (Lexapro) 20 Mg Tablet, 20 MG PO DAILY Levothyroxine Sodium (Levothyroxine Sodium) 100 Mcg Tab, 100 MCG PO DAILY Montelukast Sodium (Singulair) 10 Mg Tab, 10 MG PO QHS Allergies Coded Allergies: No Known Allergies (Unverified , 06/19/17) A-FIB/CHADSVASC A-FIB History Current/History of A-Fib/PAF?: No Current PO Anticoag Therapy: No ROWENA NUNES MD Jun 18, 2021 21:42
[2021-06-18] MEDS ORDERED: TRUL0.5I SC (22:08)
[2021-06-18] MEDS ORDERED: LEXA1TAB2 PO (22:08)
[2021-06-18] MEDS ORDERED: HOME MED LIST COMPLETE! XX SCH (22:10)
[2021-06-18] MEDS ORDERED: NS 1,000 ML IV ONE (22:40)
[2021-06-18] MEDS ORDERED: GLUCOSE 4GM CHEW TABLET PO PRN (23:20)
[2021-06-18] MEDS ORDERED: GLUCAGON INJ 1MG VIAL SC PRN (23:20)
[2021-06-18] MEDS ORDERED: DEXTROSE 50% 50 ML SYRINGE IV PRN (23:20)
[2021-06-18] MEDS ORDERED: ISOVUE-370 76% 100ML VIAL As Ordered ONE (23:22)
[2021-06-19] MEDS: MONTELUKAST 10 MG TAB PO SCH ×2 (00:44→19:57)
[2021-06-19] MEDS ORDERED: NS 1,000 ML IV SCH (03:00)
[2021-06-19 04:15] VITALS: BP 135/72
--- NOTE | 2021-06-19 05:38 | REPVR ---
PROCEDURE INFORMATION: Exam: CTA Chest With Contrast Exam date and time: 06/18/2021 10:53 PM Age: 60 years old Clinical indication: Shortness of breath; Additional info: Dyspnea in PT w elevated d-dimer and covid R/O pe TECHNIQUE: Imaging protocol: Computed tomographic angiography of the chest with contrast. 3D rendering (Not supervised by radiologist): MIP and/or 3D reconstructed images were created by the technologist. Radiation optimization: All CT scans at this facility use at least one of these dose optimization techniques: automated exposure control; mA and/or kV adjustment per patient size (includes targeted exams where dose is matched to clinical indication); or iterative reconstruction. Contrast material: ISO; Contrast volume: 75 ml; Contrast route: INTRAVENOUS (IV); COMPARISON: CR PORTABLE CHEST X-RAY 06/18/2021 6:11 PM FINDINGS: Pulmonary arteries: Normal. No pulmonary emboli. Aorta: Unremarkable. No aortic aneurysm. No aortic dissection. Lungs: There is extensive diffuse bilateral lung infiltrates some ground-glass and some dense. Pleural spaces: Unremarkable. No pneumothorax. No pleural effusion. Heart: Unremarkable. No cardiomegaly. No pericardial effusion. Lymph nodes: Unremarkable. No enlarged lymph nodes. Liver: The liver is hypoattenuated. Gallbladder and bile ducts: The patient is status post cholecystectomy. Bones/joints: Unremarkable. No acute fracture. Soft tissues: Unremarkable. IMPRESSION: 1. No CT evidence of pulmonary embolism or right heart strain. 2. Extensive diffuse bilateral lung infiltrates.Imaging features can be seen with COVID-19 pneumonia, though are nonspecific and can occur with a variety of infectious and noninfectious processes. (Reference: Abiodun) 3. Fatty infiltration of the liver. REFERENCES: Abiodun Castillo et al., [employer] Society of [place] Expert Consensus Statement on Reporting Chest CT Findings Related to COVID-19. Endorsed by the Society of Thoracic Radiology, the [place] [employer], and RSNA. Published December 07, 2019. Electronically signed by: Bernard Soto On 06/19/2021 05:37:59 AM
[2021-06-19 05:51] LABS: BASO % 0.3 % (0.0-1.0); HEMATOCRIT 43.6 % (36.0-47.0); HEMOGLOBIN 14.4 g/dl (12.0-15.5); LYMPH % 7.6 % (24.0-44.0); MEAN CORPUSCULAR HEMOGLOBIN 29.2 pg (27.0-33.0); MEAN CORPUSCULAR VOLUME 88.4 fl (80.0-96.0); MONO # 0.3 10^3/uL (0.0-0.8); MONO % 2.3 % (2.0-8.0); PLATELET COUNT, AUTOMATED 321 10^3/uL (150-450); RED BLOOD COUNT 4.93 10^6/uL (4.00-5.40); WHITE BLOOD COUNT 13.7 10^3/uL (4.0-10.0)
[2021-06-19 06:13] LABS: HEMOGLOBIN A1c 8.5 %
[2021-06-19 06:19] LABS: CALCIUM LEVEL 8.3 MG/DL (8.8-10.2); CREATININE FOR GFR 1.1 MG/DL (0.55-1.30); GLOMERULAR FILTRATION RATE 53.8 (>45); MAGNESIUM LEVEL 2.4 MG/DL (1.8-2.4); POTASSIUM SERUM 4.4 MEQ/L (3.5-5.1)
[2021-06-19] MEDS ORDERED: HumaLOG INSULIN (NovoLOG) PER UNIT SC SCH (07:30)
[2021-06-19 08:21] VITALS: BP 170/90
--- NOTE | 2021-06-19 08:38 | REP ---
INDICATION: Hypoxia COMPARISON: 06/18/2021 TECHNIQUE: Portable AP view of the chest FINDINGS: Mediastinum and cardiac silhouette are stable. Diffuse bilateral infiltrates are again noted and essentially unchanged when allowing for variation in technique. No obvious effusion or pneumothorax. IMPRESSION: Diffuse significant bilateral multifocal infiltrates essentially unchanged. <Electronically signed by Shaheen Bustos > 06/19/21 08
[2021-06-19 08:42] LABS: ALBUMIN 2.1 GM/DL (3.2-5.2); BILIRUBIN,DIRECT 0.2 MG/DL (0.0-0.2); BILIRUBIN,TOTAL 0.6 MG/DL (0.2-1.0); TOTAL PROTEIN 7.1 GM/DL (6.4-8.2)
[2021-06-19] MEDS: ATORVASTATIN 20 MG TAB PO SCH (08:53)
[2021-06-19] MEDS: ASPIRIN 81MG ENTERIC TABLET PO SCH (08:53)
[2021-06-19] MEDS: dexameTHASONE 4 MG/ML 1ML VIAL (J1100 PER 1MG) IV SCH (08:53)
[2021-06-19] MEDS: LEVOTHYROXINE 100MCG TABLET (0.1MG) PO SCH (08:54)
[2021-06-19] MEDS: ESCITALOPRAM OXALATE 10 MG TAB (LEXAPRO) PO SCH (08:54)
[2021-06-19] MEDS: ENOXAPARIN 60MG/0.6ML SYRINGE (J1650 PER 10MG) SC SCH ×2 (08:54→19:57)
[2021-06-19] MEDS ORDERED: ALBUTEROL 90 MCG/ACT 8GM HFA INHALER INH PRN (08:55)
[2021-06-19] MEDS ORDERED: ENOXAPARIN 40MG/0.4ML SYRINGE (J1650 PER 10MG) SC SCH (09:00)
[2021-06-19] MEDS ORDERED: FLUBLOK(EGG FREE)(QUAD)INFLUENZA VACC 0.5ML SYRINGE 18YRS & OLDER IM ONE (09:00)
[2021-06-19] MEDS: ACETAMINOPHEN TAB 650MG DOSE (2X325MG) PO PRN (09:05)
[2021-06-19 09:59] LABS: ABG BASE EXCESS -1.4 (-2.0-2.0); ABG HCO3 21.6 MEQ/L (22.0-26.0); ABG O2 SATURATION 99.2 % (95.0-99.0); ABG PARTIAL PRESSURE CO2 31.9 mmHg (35.0-45.0); ABG PARTIAL PRESSURE O2 254.7 mmHg (75.0-100.0); ABG STANDARD HCO3 23.3 MEQ/L (22.0-26.0); ABG TOTAL CO2 22.6 MEQ/L (23.0-31.0); ABG pH (ARTERIAL) 7.449 UNITS (7.350-7.450)
[2021-06-19 10:00] VITALS: BP 150/82
--- NOTE | 2021-06-19 10:28 | CR.PDOC ---
General Date of Consultation: Jun 19, 2021 Consultation REASON FOR CRITICAL CARE CONSULTATION/MATT COMPLAINT: Respiratory failure HISTORY OF PRESENT ILLNESS: 60-year-old female with recent diagnosis of COVID-19 approximately 2 weeks ago presented to the hospital for progressive worsening shortness of breath for the last week. She was initially exposed to Covid from her significant other. She denied any fever, chills, weight changes, night sweats. She only had progressive worsening shortness of breath on exertion and at rest. When she arrived in the ED she was in respiratory distress and hypoxic on room air and she was started on CPAP en route to the hospital. Patient was admitted yesterday. There were no overnight events. The patient is seen and examined at bedside, she is on high flow nasal cannula 40 L / 100%. She still complains of shortness of breath but denies any cough, hemoptysis, diarrhea, leg pains. ALLERGIES: Please see below. HOME MEDICATIONS: Please see below. PAST MEDICAL/SURGICAL HISTORY: Hypertension, migraines, depression, hypothyroidism, diabetes, heart failure preserved EF, obesity. x2, cholecystectomy, cataract surgery left eye FAMILY HISTORY: Mother of lung disease she thinks COPD. SOCIAL HISTORY: Never smoker, denies alcohol use or illicit drug use. 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 REVIEW OF SYSTEMS: CONSTITUTIONAL: Denies fever, chills, night sweats, weight loss EYES: Bilateral eye pain. ENT: No sore throat. No epistaxis. No tinnitus. CARDIOVASCULAR: No chest pain. No palpitations. RESPIRATORY: no wheeze, no cough, no hemoptysis GASTROINTESTINAL: No nausea, vomiting, or diarrhea. GENITOURINARY: No frequency, urgency, nocturia. No hematuria or dysuria. MUSCULOSKELETAL: No arthralgias or myalgias. INTEGUMENTARY: No rash or swelling NEUROLOGIC: No headache. No numbness or tingling of the extremities. No weakness. PSYCHIATRIC: No confusion or mood changes. ENDOCRINE: No fatigue, no goiter. HEMATOLOGICAL: No bleeding. No petechiae. No bruising. PHYSICAL EXAMINATION: VITAL SIGNS: Please see below. GENERAL APPEARANCE: Mild respiratory distress. Speaks in full sentences. Alert and awake. HEENT: no thyromegaly, trachea midline, PERRLA. normal mucous membranes RESPIRATORY: Crackles bilaterally at the bases. good air entry. CARDIOVASCULAR: +s1 s2, no murmurs. Normal rate and rhythm ABDOMEN: nontender, not distended, +BS EXTREMITIES: no edema or erythema. palpable distal pulses SKIN: no rash, no purpura NEUROLOGICAL: no sensory or motor deficits, orientedx3. LABS/IMAGING: White blood cell count 17 yesterday today 13.7 ABG 7.4 4/254 Lactic acid 3.3 yesterday, 1.8 today Ferritin 1166 LDH 561 BNP 276 Procalcitonin 0.48 Interleukin-6 pending Dimer more than 4000 Fibrinogen 633 Blood cultures pending chest x-ray today shows diffuse significant bilateral multifocal infiltrates CT chest with contrast CT evidence of PE or right heart strain. Extensive diffuse bilateral lung infiltrates. Fatty infiltration of liver IMPRESSION: The most critical problems requiring my immediate presence at bedside are: 1. Acute hypoxic respiratory failure secondary to COVID-19 pneumonia. Cannot rule out bacterial coinfection. 2. Sepsis present on admission 3. Elevated inflammatory markers 4. Morbid obesity PLAN: [employer]IZER: No neurologic issues. PULM: HOB 30 degrees. Maintain Sp02 88-96 %. Continue Vapotherm and titrate down oxygen as tolerated. Continue bronchodilators as needed. Continue Decadron 6 mg IV daily for 10 days or until discharge whichever is shorter. CARDIO: Maintain MAPs 60-65. I=O GI: GI ppx. P.o. diet as tolerated RENAL: monitor lytes. ID: Continue Rocephin and azithromycin for now. Start baricitinib. urine legionella and urine strept. mrsa nares ENDO: Monitor FS per routine. Goal range 140-180. HEME: DVT ppx Lovenox 50 mg twice daily LINES/CATHETERS: Peripherals only CODE STATUS: Full code. DISPOSITION: Monitor in ICU for now. A total of 50 minutes of critical care time was spent on patient care, not including procedures Thank you for the courtesy of this consult. Please text me on Vocera for any questions or concerns. Vital Signs/I&O Vital Signs Date Time Temp Pulse Resp B/P (MAP) Pulse Ox O2 Delivery O2 Flow Rate FiO2 06/19/21 08:21 99.6 68 26 170/90 (116) 90 HVNI-Vapotherm 40.0 100 I&O- Last 24 Hours up to 6 AM 06/19/21 06:00 Intake Total 1675 ml Balance 1675 ml Laboratory Data Labs 24H Laboratory Tests 2 06/18/21 18:00: Blood Gas Bicarbonate Standard 20.9, Venous Blood pH 7.401, Venous Blood Partial Pressure CO2 34.3L, Venous Blood Partial Pressure O2 32.1, Venous Blood Total Ca rbon Dioxide 21.9L, Venous Blood HCO3 20.8L, Venous Blood Oxygen Saturation 57.3L, Venous Blood Base Excess -3.1L, Anion Gap 8, Glomerular Filtration Rate 49.1, Calcium Level 8.7L, Magnesium Level 2.1, Ferritin 1360H, Total Bilirubin 1.0, Aspartate Amino Transf (AST/SGOT) 89H, Alanine Aminotransferase (ALT/SGPT) 80H, Alkaline Phosphatase 117, Lactate Dehydrogenase 702H, Total Creatine Kinase 114, Creatine Kinase MB < 1.0, Creatine Kinase MB Relative Index 0.88, Troponin I < 0.02, C-Reactive Protein, Quantitative 16.70H, Total Protein 7.1, Albumin 2.5L, Albumin/Globulin Ratio 0.5L, Procalcitonin 0.48 06/18/21 18:10: Prothrombin Time 15.0H, Prothromb Time International Ratio 1.14, Activated Partial Thromboplast Time 29.1, Fibrinogen 633H, D-Dimer, Quantitative > 4000.0H, Lactic Acid Level 3.3*H 06/18/21 20:12: Immature Granulocyte % (Auto) 1.9, Neutrophils (%) (Auto) 89.8H, Lymphocytes (%) (Auto) 5.3L, Monocytes (%) (Auto) 2.5, Eosinophils (%) (Auto) 0.2, Basophils (%) (Auto) 0.3, Neutrophils # (Auto) 15.4H, Lymphocytes # (Auto) 0.9L, Monocytes # (Auto) 0.4, Eosinophils # (Auto) 0.0, Basophils # (Auto) 0.1, Nucleated Red Blood Cells % (auto) 0.1H 06/19/21 00:28: Bedside Glucose (Misc Panel) 306H 06/19/21 00:41: Lactic Acid Followup at 4 Hours 1.8 06/19/21 05:40: Immature Granulocyte % (Auto) 1.8, Neutrophils (%) (Auto) 88.0H, Lymphocytes (%) (Auto) 7.6L, Monocytes (%) (Auto) 2.3, Eosinophils (%) (Auto) 0.0, Basophils (%) (Auto) 0.3, Neutrophils # (Auto) 12.0H, Lymphocytes # (Auto) 1.0L, Monocytes # (Auto) 0.3, Eosinophils # (Auto) 0.0, Basophils # (Auto) 0.0, Nucleated Red Blood Cells % (auto) 0.0, Anion Gap 8, Glomerular Filtration Rate 53.8, Estimated Mean Plasma Glucose 197H, Hemoglobin A1c 8.5, Calcium Level 8.3L, Magnesium Level 2.4, Ferritin 1166H, Total Bilirubin 0.6, Direct Bilirubin 0.2, Aspartate Amino Transf (AST/SGOT) 51H, Alanine Aminotransferase (ALT/SGPT) 65, Alkaline Phosphatase 105, Lactate Dehydrogenase 561H, HK-Tzi-M-Type Natriuretic Peptide 276H, Total Protein 7.1, Albumin 2.1L, Albumin/Globulin Ratio 0.4L 06/19/21 07:35: 06/19/21 09:55: Blood Gas Bicarbonate Standard 23.3, Arterial Blood pH 7.449, Arterial Blood Partial Pressure CO2 31.9L, Arterial Blood Partial Pressure O2 254.7H, Arterial Blood Total CO2 22.6L, Arterial Blood HCO3 21.6L, Arterial Blood Base Excess - 1.4, Arterial Blood Oxygen Saturation 99.2H CBC/BMP Laboratory Tests 06/18/21 18:00 06/18/21 20:12 06/19/21 05:40 Microbiology Microbiology 06/18/21 Respiratory Virus Panel (PCR) (MARCELO) - Final, Complete SARS-CoV-2 (COVID 19) 06/18/21 Blood Culture, Received Pending 06/18/21 Blood Culture, Received Pending Allergies Coded Allergies: No Known Allergies (Unverified , 06/19/17) Home Medications Scheduled Atorvastatin Calcium (Atorvastatin Calcium) 20 Mg Tab, 20 MG PO DAILY, (Report ed) Dulaglutide (Trulicity) 1.5 Mg/0.5 Ml Pen.injctr, 1.5 MG SC QWEEK, (Reported) SUNDAYS Escitalopram Oxalate (Lexapro) 20 Mg Tablet, 20 MG PO DAILY, (Reported) Levothyroxine Sodium (Levothyroxine Sodium) 100 Mcg Tab, 100 MCG PO DAILY, (Reported) Montelukast Sodium (Singulair) 10 Mg Tab, 10 MG PO QHS, (Reported) CARMELO VILLA MD Jun 19, 2021 10:28
--- NOTE | 2021-06-19 11:50 | IPNPDOC ---
Text Note Date of Service The patient was seen on 06/19/21. NOTE Subjective: Patient is a 60-year-old female with a PMHx of Recent COVID19 diagnosis on 06/07/21, HTN, Diastolic CHF (Grade 1), NIDDM2, DLP, Hypothyroidism, Migraines, Depression, Obesity, who presented to the ER with complaints of short of breath. Patient was brought in via ambulance and was placed on CPAP en route. Upon arrival, patient was noted to be hypoxic and was admitted to the hospitalist service for further evaluation and treatment. Overnight patient had a rapid deterioration and required max to Vapotherm therapy at 100% FiO2 and 40 L a minute. She was subsequently transferred to the ICU for further evaluation. Pulmonology was called on consultation. Patient was seen and examined at the bedside. Patient was seen sitting upright in bed, appears to have significant dryness of breath. Denies any chest pain or palpitations reported nonproductive cough. Has not experienced any nausea, vomiting, abdominal pain, diarrhea, or urinary discomfort. Objective: Vitals (See below) General: Patient was seen sitting upright in bed, appeared to be short of breath was awake and alert, oriented 3 HEENT: NC, AT CVS: +S1S2 Lungs: Air entry bilaterally, seemed to be diminished faint crackles can be appreciated at bases Abdomen: Soft, ND, NT Extremities: No lower extremity edema could be appreciated Imaging: CXR 06/18: Diffuse bilateral infiltrates consistent with COVID-19 pulmonary disease. CTA Chest 06/18: 1. No CT evidence of pulmonary embolism or right heart strain. 2. Extensive diffuse bilateral lung infiltrates.Imaging features can be seen with COVID-19 pneumonia, though are nonspecific and can occur with a variety of infectious and noninfectious processes. (Reference: Abiodun) 3. Fatty infiltration of the liver. CXR 06/19: Diffuse significant bilateral multifocal infiltrates essentially unchanged. Assessment and plan: Acute hypoxic respiratory failure - likely 2/2 COVID19 pneumonia, possibly 2/2 superimposed bacterial infection - Patient had worsening of her oxygen requirement overnight - Currently on CPAP with intermittent Vapotherm therapy - COVID19 positive on 06/07 - Imaging noted above - c/w Dexamethasone; Will start Baricitinib - c/w Ceftriaxone and Azithromycin (Day #2) - Pulmonology on consultation; appreciate their input HTN / Chronic HFpEF (grade 1) - BP appears hypertensive this morning - Will continue to monitor for now - Currently not on any medications Depression - c/w Escitalopram Hypothyroidism - c/w Levothyroxine NIDDM2 - A1c of 8.5% - c/w ISS Class 1 obesity - BMI of 40 - Complicating medical care Migraine headaches - c/w Tylenol PRN GI prophylaxis - Will start Protonix (CPAP / Corticosteroids / Weight based Lovenox prophylaxis) DVT prophylaxis - c/w Lovenox (weight based prophylactic dosing) Disposition: - Awaiting clinical improvement VSAmanda I+O VSAmanda I+O Laboratory Tests 06/18/21 18:00 06/18/21 20:12 06/19/21 05:40 Vital Signs Date Time Temp Pulse Resp B/P (MAP) Pulse Ox O2 Delivery O2 Flow Rate FiO2 06/19/21 09:50 100 06/19/21 08:45 40.0 06/19/21 08:21 99.6 68 26 170/90 (116) 90 HVNI-Vapotherm I&O- Last 24 Hours up to 6 AM 06/19/21 06:00 Intake Total 1675 ml Balance 1675 ml BEULAH HERNANDEZ MD Jun 19, 2021 11:50
[2021-06-19 12:43] VITALS: BP 114/57
[2021-06-19] MEDS: PANTOPRAZOLE 40MG VIAL (C9113 PER 1) IV SCH (12:49)
[2021-06-19] MEDS: BARICITINIB 2MG TABLET (OLUMIANT) FOR EUA PO SCH (12:49)
[2021-06-19] MEDS: HumaLOG INSULIN (NovoLOG) PER UNIT SC SCH ×3 (14:41→23:54)
[2021-06-19 16:30] VITALS: BP 113/79
[2021-06-19] MEDS: cefTRIAXone SOD 1 GM in D5W MINI-BAG PLUS 50 ML IV SCH (17:17)
--- NOTE | 2021-06-19 17:37 | ECGEPIP ---
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
[2021-06-19] MEDS: AZITHROMYCIN INJ 500 MG, VIAL MATE ADAPTER 1 EACH in NS 250 ML IV SCH (18:25)
[2021-06-19 20:00] VITALS: BP 128/77
[2021-06-20] VITALS: BP 128/74
[2021-06-20 04:00] VITALS: BP 163/79
[2021-06-20 05:05] LABS: INR 1.18; PROTHROMBIN TIME 15.5 SECONDS (12.7-14.5)
[2021-06-20 05:06] LABS: PARTIAL THROMBOPLASTIN TIME 29.2 SECONDS (25.9-37.0)
[2021-06-20 05:19] LABS: ALBUMIN 2.1 GM/DL (3.2-5.2); ALT/SGPT 47 U/L (12-78); BILIRUBIN,DIRECT 0.2 MG/DL (0.0-0.2); BILIRUBIN,TOTAL 0.5 MG/DL (0.2-1.0); CPK CREATINE PHOSPHOKINASE 58 U/L (26-192); FERRITIN 1020 NG/ML (8-252); LDH LACTATE DEHYDROGENASE 534 U/L (84-246); NT-PRO BNP 434 PG/ML (<125); TOTAL PROTEIN 6.3 GM/DL (6.4-8.2); TROPONIN I < 0.02 NG/ML (< 0.10)
[2021-06-20] MEDS: HumaLOG INSULIN (NovoLOG) PER UNIT SC SCH ×4 (05:41→20:10)
[2021-06-20 07:45] VITALS: BP 137/74
[2021-06-20 08:12] LABS: BASO % 0.2 % (0.0-1.0); EOS % 0.1 % (0.0-3.0); HEMATOCRIT 38.8 % (36.0-47.0); HEMOGLOBIN 12.9 g/dl (12.0-15.5); LYMPH # 1.8 10^3/uL (1.5-5.0); LYMPH % 10.8 % (24.0-44.0); MEAN CORPUSCULAR HEMOGLOBIN 29.5 pg (27.0-33.0); MEAN CORPUSCULAR HGB CONC 33.2 g/dl (32.0-36.5); MEAN CORPUSCULAR VOLUME 88.6 fl (80.0-96.0); MONO # 0.7 10^3/uL (0.0-0.8); MONO % 4.1 % (2.0-8.0); NEUTROPHILS % 82.3 % (36.0-66.0); PLATELET COUNT, AUTOMATED 383 10^3/uL (150-450); RED BLOOD COUNT 4.38 10^6/uL (4.00-5.40)
[2021-06-20 08:14] LABS: BLOOD UREA NITROGEN 19 MG/DL (7-18); CALCIUM LEVEL 8.4 MG/DL (8.8-10.2); CARBON DIOXIDE LEVEL 24 MEQ/L (21-32); CHLORIDE LEVEL 107 MEQ/L (98-107); GLOMERULAR FILTRATION RATE 59.8 (>45); GLUCOSE, FASTING 205 MG/DL (70-100); MAGNESIUM LEVEL 2.8 MG/DL (1.8-2.4); POTASSIUM SERUM 4.4 MEQ/L (3.5-5.1); SODIUM LEVEL 139 MEQ/L (136-145)
[2021-06-20] MEDS: dexameTHASONE 4 MG/ML 1ML VIAL (J1100 PER 1MG) IV SCH (09:57)
[2021-06-20] MEDS: ASPIRIN 81MG ENTERIC TABLET PO SCH (09:58)
[2021-06-20] MEDS: ENOXAPARIN 60MG/0.6ML SYRINGE (J1650 PER 10MG) SC SCH ×2 (09:58→20:10)
[2021-06-20] MEDS: BARICITINIB 2MG TABLET (OLUMIANT) FOR EUA PO SCH (09:58)
[2021-06-20] MEDS: ATORVASTATIN 20 MG TAB PO SCH (09:59)
[2021-06-20] MEDS: ESCITALOPRAM OXALATE 10 MG TAB (LEXAPRO) PO SCH (09:59)
[2021-06-20] MEDS: LEVOTHYROXINE 100MCG TABLET (0.1MG) PO SCH (10:00)
--- NOTE | 2021-06-20 10:49 | IPNPDOC ---
Text Note Date of Service The patient was seen on 06/20/21. NOTE SUBJECTIVE: Patient is a 60-year-old female with PMHx of HTN, DM, CHFpEF, hyp othyroidism, migraines, depression and obesity with COVID diagnosed approximately 2 weeks ago presenting to the hospital for progressive worsening shortness of breath for the last week. Patient was started on CPAP as well as Vapotherm. Admitted to the hospitalist service for acute hypoxic respiratory failure secondary to COVID-19 pneumonia. Patient was seen at bedside wrapped in blankets. No acute events overnight; she did have to use CPAP 6/55% overnight. Complaining of some SOB but improved from yesterday as well as feeling chilly. Has some intermittent dry cough. Seen on 25L/80% vapotherm. Denies fever, night sweats, increased SOB, chest pain, palpitations, n/v/d, constipation, abdominal pain, dysuria. Patient not tolerating 40L/60% Vapotherm saturating in the 80's. Will place her back on 25L/80% for now OBJECTIVE PHYSICAL EXAMINATION: VITAL SIGNS: Please see below. GENERAL: in no acute distress, currently on Vapotherm 25/80% HEENT: PERRLA, EOMI, mucous membranes moist CARDIOVASCULAR: regular rate and rhythm; S1 S2; no murmur, rubs or gallops noted RESPIRATORY: some crackles bibasilar; good air entry bilaterally ABDOMINAL: normal active bowel sounds; soft, nondistended, no tenderness with palpation EXTREMITIES: no pitting edema; +2 dorsalis pedis palpated SKIN: no rash or new lesions NEUROLOGICAL: Cranial nerves II through XII grossly intact; no focal neurologic deficits noted LABORATORY DATA, IMAGING STUDIES, MICROBIOLOGY: Please see below. IMPRESSION: 1. Acute hypoxic respiratory failure secondary to COVID-19 pneumonia - can't r/o bacterial coinfection 2. Sepsis present on admission 3. Elevated inflammatory markers 4. Morbid obesity 5. CHFpEF 6. HTN PLAN: * Titrate down oxygen as tolerated; keep oxygen saturations 88 to 96%; continue Vapotherm increase to 40L flow rate. CPAP 6/55% as needed * Awake proning as much as tolerated and can give bronchodilators as needed * Continue baricitinib and Decadron 6mg daily. * Ceftriaxone and Azithromycin for possible bacterial coinfection; pending urine legionella and urine strep and MRSA nares; will recheck lactic acid, procalcitonin pending. * Continue I=O; diurese if tolerated * Maintain MAPs 60-65 * DVT prophylaxis: Lovenox 50mg BID * CODE STATUS: full code * Keep in ICU for today. VS,Fishbone, I+O VS, Fishbone, I+O Laboratory Tests 06/20/21 04:40 Vital Signs Date Time Temp Pulse Resp B/P (MAP) Pulse Ox O2 Delivery O2 Flow Rate FiO2 06/20/21 10:13 87 HVNI-Vapotherm 40.0 60 06/20/21 08:00 56 06/20/21 07:45 98.0 22 137/74 (95) I&O- Last 24 Hours up to 6 AM 06/20/21 05:59 Intake Total 610 ml Output Total 1000 ml Balance -390 ml GME ATTESTATION GME ATTESTATION My faculty preceptor for this patient encounter was physically present during e encounter and was fully available. All aspects of the patient interview, examination, medical decision making process, and medical care plan development were reviewed and approved by the faculty preceptor. The faculty preceptor is aware and concurs with the plan as stated in the body of this note and will attest to such by his/her cosignature. Gabby Hector DO Jun 20, 2021 10:49 ACRMELO VILLA MD Jun 20, 2021 11:01
--- NOTE | 2021-06-20 11:37 | IPNPDOC ---
Text Note Date of Service The patient was seen on 06/20/21. NOTE Subjective: Patient is a 60-year-old female with a PMHx of Recent COVID19 diagnosis on 06/07/21, HTN, Diastolic CHF (Grade 1), NIDDM2, DLP, Hypothyroidism, Migraines, Depression, Obesity, who presented to the ER with complaints of short of breath. Patient was brought in via ambulance and was placed on CPAP en route. Upon arrival, patient was noted to be hypoxic and was admitted to the hospitalist service for further evaluation and treatment. Overnight patient had a rapid deterioration and required max to Vapotherm therapy at 100% FiO2 and 40 L a minute. She was subsequently transferred to the ICU for further evaluation. Pulmonology was called on consultation. Patient was seen and examined at the bedside. Patient was seen laying in bed, appears comfortable, only on Vapotherm therapy. She denies any chest pain or palpitations. Reports that her breathing is doing better, still reports a nonproductive cough. Has not experience any nausea, vomiting, abdominal pain, still reports some loose bowel movements. Denies any constipation. Denies any urinary discomfort. Objective: Vitals (See below) General: Patient is laying in bed, appears to be comfortable without any acute distress. She is awake, alert, oriented 3 HEENT: Atraumatic and normocephalic CVS: +S1S2 Lungs: There appears to be fair air entry bilaterally without any auscultated evidence of crackles, wheezing or rhonchi Abdomen: Remains soft without any appreciated distention or tenderness Extremities: Again lower extremities do not reveal any pitting edema Imaging: CXR 06/18: Diffuse bilateral infiltrates consistent with COVID-19 pulmonary disease. CTA Chest 06/18: 1. No CT evidence of pulmonary embolism or right heart strain. 2. Extensive diffuse bilateral lung infiltrates.Imaging features can be seen with COVID-19 pneumonia, though are nonspecific and can occur with a variety of infectious and noninfectious processes. (Reference: Abiodun) 3. Fatty infiltration of the liver. CXR 06/19: Diffuse significant bilateral multifocal infiltrates essentially unchanged. Assessment and plan: Acute hypoxic respiratory failure - likely 2/2 COVID19 pneumonia, possibly 2/2 superimposed bacterial infection - Overnight patient remained stable while on CPAP therapy - This morning she was transitioned over Vapotherm therapy and has been tolerating it well - COVID19 positive on 06/07 - Imaging noted above - c/w Dexamethasone (Day #3) and Baricitinib (Day #2) - c/w Ceftriaxone and Azithromycin (Day #3) - Pulmonology on consultation; appreciate their input HTN / Chronic HFpEF (Grade 1) - BP appears relatively well controlled - Patient reports that she takes lisinopril as an outpatient - Currently Lisinopril on hold Depression - c/w Escitalopram Hypothyroidism - c/w Levothyroxine NIDDM2 - A1c of 8.5% - c/w ISS Class 1 obesity - BMI of 40 - Complicating medical care Migraine headaches - c/w Tylenol PRN GI prophylaxis - c/w Protonix (CPAP / Corticosteroids / Weight based Lovenox prophylaxis) DVT prophylaxis - c/w Lovenox (weight based prophylactic dosing) Disposition: - Awaiting clinical improvement VS,Amanda, I+O VSAmanda I+O Laboratory Tests 06/20/21 04:40 Vital Signs Date Time Temp Pulse Resp B/P (MAP) Pulse Ox O2 Delivery O2 Flow Rate FiO2 06/20/21 10:13 87 HVNI-Vapotherm 40.0 60 06/20/21 08:00 56 06/20/21 07:45 98.0 22 137/74 (95) I&O- Last 24 Hours up to 6 AM 06/20/21 06:00 Intake Total 485 ml Output Total 1000 ml Balance -515 ml BEULAH HERNANDEZ MD Jun 20, 2021 11:37
[2021-06-20 12:00] VITALS: BP 141/90
[2021-06-20] MEDS: PANTOPRAZOLE 40MG VIAL (C9113 PER 1) IV SCH (12:26)
[2021-06-20] MEDS ORDERED: NS 500 ML IV ONE (13:00)
[2021-06-20] MEDS: NS 1,000 ML IV SCH (14:08)
[2021-06-20 16:08] VITALS: BP 114/59
[2021-06-20] MEDS: cefTRIAXone SOD 1 GM in D5W MINI-BAG PLUS 50 ML IV SCH (17:18)
[2021-06-20] MEDS: AZITHROMYCIN INJ 500 MG, VIAL MATE ADAPTER 1 EACH in NS 250 ML IV SCH (18:15)
[2021-06-20 20:00] VITALS: BP 122/68
[2021-06-20] MEDS: MONTELUKAST 10 MG TAB PO SCH (20:09)
[2021-06-21] VITALS: BP 137/77
[2021-06-21] MEDS: NS 1,000 ML IV SCH (03:51)
[2021-06-21 04:00] VITALS: BP 126/59
[2021-06-21 05:29] LABS: BASO % 0.3 % (0.0-1.0); EOS # 0.2 10^3/uL (0.0-0.5); EOS % 1.1 % (0.0-3.0); HEMATOCRIT 39.2 % (36.0-47.0); HEMOGLOBIN 13.1 g/dl (12.0-15.5); LYMPH # 1.2 10^3/uL (1.5-5.0); MEAN CORPUSCULAR HEMOGLOBIN 29.5 pg (27.0-33.0); MEAN CORPUSCULAR HGB CONC 33.4 g/dl (32.0-36.5); MEAN CORPUSCULAR VOLUME 88.3 fl (80.0-96.0); MONO # 0.5 10^3/uL (0.0-0.8); NEUTROPHILS # 12.4 10^3/uL (1.5-8.5); NEUTROPHILS % 83.5 % (36.0-66.0); PLATELET COUNT, AUTOMATED 390 10^3/uL (150-450); RED BLOOD COUNT 4.44 10^6/uL (4.00-5.40); WHITE BLOOD COUNT 14.9 10^3/uL (4.0-10.0)
[2021-06-21 06:03] LABS: ALT/SGPT 38 U/L (12-78); BILIRUBIN,TOTAL 0.4 MG/DL (0.2-1.0); BLOOD UREA NITROGEN 19 MG/DL (7-18); CALCIUM LEVEL 7.9 MG/DL (8.8-10.2); CARBON DIOXIDE LEVEL 23 MEQ/L (21-32); CHLORIDE LEVEL 110 MEQ/L (98-107); CREATININE FOR GFR 0.92 MG/DL (0.55-1.30); GLOMERULAR FILTRATION RATE > 60.0 (>45); GLUCOSE, FASTING 260 MG/DL (70-100); MAGNESIUM LEVEL 2.4 MG/DL (1.8-2.4); POTASSIUM SERUM 4.2 MEQ/L (3.5-5.1); SODIUM LEVEL 140 MEQ/L (136-145); TOTAL PROTEIN 5.9 GM/DL (6.4-8.2)
[2021-06-21] MEDS: dexameTHASONE 4 MG/ML 1ML VIAL (J1100 PER 1MG) IV SCH (08:53)
[2021-06-21] MEDS: HumaLOG INSULIN (NovoLOG) PER UNIT SC SCH ×4 (08:53→21:22)
[2021-06-21] MEDS: ENOXAPARIN 60MG/0.6ML SYRINGE (J1650 PER 10MG) SC SCH ×2 (08:54→21:19)
[2021-06-21] MEDS: BARICITINIB 2MG TABLET (OLUMIANT) FOR EUA PO SCH (08:55)
[2021-06-21] MEDS: ATORVASTATIN 20 MG TAB PO SCH (08:55)
[2021-06-21] MEDS: LEVOTHYROXINE 100MCG TABLET (0.1MG) PO SCH (08:56)
[2021-06-21] MEDS: ASPIRIN 81MG ENTERIC TABLET PO SCH (08:56)
[2021-06-21] MEDS: ESCITALOPRAM OXALATE 10 MG TAB (LEXAPRO) PO SCH (08:56)
--- NOTE | 2021-06-21 10:33 | IPNPDOC ---
Text Note Date of Service The patient was seen on 06/21/21. NOTE SUBJECTIVE: Patient is a 60-year-old female with PMHx of HTN, DM, CHFpEF, hyp othyroidism, migraines, depression and obesity with COVID diagnosed approximately 2 weeks ago presenting to the hospital for progressive worsening shortness of breath for the last week. Patient was started on CPAP as well as Vapotherm. Admitted to the hospitalist service for acute hypoxic respiratory failure secondary to COVID-19 pneumonia. Patient was seen at bedside. No acute events overnight; she did not use CPAP overnight. Complaining of some SOB but improved from yesterday. Has some inter mittent dry cough. Seen on 25L/55% vapotherm saturating >90%. Denies fever, night sweats, increased SOB, chest pain, palpitations, n/v/d, constipation, abdominal pain, dysuria. OBJECTIVE PHYSICAL EXAMINATION: VITAL SIGNS: Please see below. GENERAL: in no acute distress, currently on Vapotherm 25L/55% HEENT: PERRLA, EOMI, mucous membranes moist CARDIOVASCULAR: regular rate and rhythm; S1 S2; no murmur, rubs or gallops noted RESPIRATORY: good air entry bilaterally; no wheezing or rales or rhonchi noted ABDOMINAL: normal active bowel sounds; soft, nondistended, no tenderness with palpation EXTREMITIES: no pitting edema; +2 dorsalis pedis palpated SKIN: no rash or new lesions NEUROLOGICAL: Cranial nerves II through XII grossly intact; no focal neurologic deficits noted LABORATORY DATA, IMAGING STUDIES, MICROBIOLOGY: Please see below. IMPRESSION: 1. Acute hypoxic respiratory failure secondary to COVID-19 pneumonia - can't r/o bacterial coinfection 2. Sepsis present on admission 3. Elevated inflammatory markers 4. Morbid obesity 5. CHFpEF 6. HTN PLAN: * Titrate down oxygen as tolerated; keep oxygen saturations 88 to 96%; continue Vapotherm 25L/55% * Awake proning as much as tolerated and can give bronchodilators as needed * Continue baricitinib and Decadron 6mg daily. * Ceftriaxone and Azithromycin (day 4) for possible bacterial coinfection; can discontinue after 5 days course; MRSA nares neg; pending urine legionella and urine strep * Continue I=O; diurese if tolerated * Maintain MAPs 60-65 * DVT prophylaxis: Lovenox 50mg BID * CODE STATUS: full code * pulm will sign off; please recall as needed. VS,Fishbone, I+O VS, Fishbone, I+O Laboratory Tests 06/21/21 05:18 Vital Signs Date Time Temp Pulse Resp B/P (MAP) Pulse Ox O2 Delivery O2 Flow Rate FiO2 06/21/21 09:13 26 97 HVNI-Vapotherm 25.0 55 06/21/21 06:00 54 06/21/21 04:00 97.2 126/59 (81) I&O- Last 24 Hours up to 6 AM 06/21/21 06:00 Intake Total 2365 ml Output Total 1200 ml Balance 1165 ml GME ATTESTATION GME ATTESTATION My faculty preceptor for this patient encounter was physically present during the encounter and was fully available. All aspects of the patient interview, examination, medical decision making process, and medical care plan development were reviewed and approved by the faculty preceptor. The faculty preceptor is aware and concurs with the plan as stated in the body of this note and will attest to such by his/her cosignature. ATTENDING NOTE Attestation: Patient is 61-year-old female with no significant past medical history admitted to the ICU with COVID-19 ARDS requiring high flow nasal cannula with intermitte nt CPAP therapy. She is completing short course of baricitinib, Decadron and remdesivir. She is also on ceftriaxone and azithromycin for superimposed bacterial pneumonia. She is no longer requiring CPAP therapy. Can continue to wean Vapotherm to target oxygen saturation above 90%. Empiric antibiotics to complete after total of 5 days. Pulmonary/ICU will standby. Please reconsult if needed. Gabby Hector DO Jun 21, 2021 10:33 ROMAIN LIU MD Jun 21, 2021 11:09
--- NOTE | 2021-06-21 11:28 | IPNPDOC ---
Text Note Date of Service The patient was seen on 06/21/21. NOTE Subjective: Patient is a 60-year-old female with a PMHx of Recent COVID19 diagnosis on 06/07/21, HTN, Diastolic CHF (Grade 1), NIDDM2, DLP, Hypothyroidism, Migraines, Depression, Obesity, who presented to the ER with complaints of short of breath. Patient was brought in via ambulance and was placed on CPAP en route. Upon arrival, patient was noted to be hypoxic and was admitted to the hospitalist service for further evaluation and treatment. Overnight patient had a rapid deterioration and required max to Vapotherm therapy at 100% FiO2 and 40 L a minute. She was subsequently transferred to the ICU for further evaluation. Pulmonology was called on consultation. Patient was seen and examined at the bedside. Currently she reports improvement in her breathing. Denies any CP, palpitations. Reports a mild cough, without any expectoration. Denies any N/V, abdominal pain, constipation, but notes some loose stool. Denies any urinary discomfort. Objective: Vitals (See below) General: Is laying in bed, does not appear to be in any distress, looks comfortable, awake and alert, oriented 3 HEENT: NC, AT CVS: +S1S2 Lungs: Air entry appears to be fair bilaterally without any auscultated crackles, wheezing or rhonchi Abdomen: ND, NT, soft Extremities: No edema Imaging: CXR 06/18: Diffuse bilateral infiltrates consistent with COVID-19 pulmonary disease. CTA Chest 06/18: 1. No CT evidence of pulmonary embolism or right heart strain. 2. Extensive diffuse bilateral lung infiltrates.Imaging features can be seen with COVID-19 pneumonia, though are nonspecific and can occur with a variety of infectious and noninfectious processes. (Reference: Abiodun) 3. Fatty infiltration of the liver. CXR 06/19: Diffuse significant bilateral multifocal infiltrates essentially unchanged. Assessment and plan: Acute hypoxic respiratory failure - likely 2/2 COVID19 pneumonia, possibly 2/2 superimposed bacterial infection - Patient has remained off of CPAP therapy for greater than 24 hours and has been tolerating Vapotherm alone - Vapotherm requirement has been improving - COVID19 positive on 06/07 - Imaging noted above - c/w Dexamethasone (Day #4) and Baricitinib (Day #3) - c/w Ceftriaxone and Azithromycin (Day #4) - Will add Incentive spirometry / Acapella / Mucinex - Pulmonology on consultation; appreciate their input - Will start PT and OT HTN / Chronic HFpEF (Grade 1) - BP appears relatively well controlled - Patient reports that she takes lisinopril as an outpatient - Currently Lisinopril on hold Depression - c/w Escitalopram Hypothyroidism - c/w Levothyroxine NIDDM2 - A1c of 8.5% - c/w ISS Class 1 obesity - BMI of 40 - Complicating medical care Migraine headaches - c/w Tylenol PRN GI prophylaxis - c/w Protonix (Corticosteroids / Weight based Lovenox prophylaxis) DVT prophylaxis - c/w Lovenox (weight based prophylactic dosing) Disposition: - Awaiting clinical improvement - Will start PT / OT - Downgrade to PCU VS,Amanda, I+O VS, Shantie, I+O Laboratory Tests 06/21/21 05:18 Vital Signs Date Time Temp Pulse Resp B/P (MAP) Pulse Ox O2 Delivery O2 Flow Rate FiO2 06/21/21 09:13 26 97 HVNI-Vapotherm 25.0 55 06/21/21 09:00 63 06/21/21 04:00 97.2 126/59 (81) I&O- Last 24 Hours up to 6 AM 06/21/21 06:00 Intake Total 2365 ml Output Total 1200 ml Balance 1165 ml BEULAH HERNANDEZ MD Jun 21, 2021 11:28
[2021-06-21 12:37] VITALS: BP 151/62
[2021-06-21] MEDS: guaiFENesin ER 600 MG TAB PO SCH ×2 (12:47→21:19)
[2021-06-21] MEDS: PANTOPRAZOLE 40MG TAB (PROTONIX) PO SCH (12:48)
[2021-06-21 16:00] VITALS: BP 144/66
[2021-06-21] MEDS: cefTRIAXone SOD 1 GM in D5W MINI-BAG PLUS 50 ML IV SCH (16:05)
[2021-06-21] MEDS: AZITHROMYCIN INJ 500 MG, VIAL MATE ADAPTER 1 EACH in NS 250 ML IV SCH (17:02)
[2021-06-21 20:00] VITALS: BP 118/58
[2021-06-21] MEDS: MONTELUKAST 10 MG TAB PO SCH (21:18)
[2021-06-21] MEDS: ACETAMINOPHEN TAB 650MG DOSE (2X325MG) PO PRN (21:19)
[2021-06-22] VITALS: BP 114/56
[2021-06-22 04:00] VITALS: BP 144/60
[2021-06-22 05:17] LABS: HEMATOCRIT 36.5 % (36.0-47.0); HEMOGLOBIN 12.2 g/dl (12.0-15.5); MEAN CORPUSCULAR HEMOGLOBIN 29.8 pg (27.0-33.0); MEAN CORPUSCULAR HGB CONC 33.4 g/dl (32.0-36.5); PLATELET COUNT, AUTOMATED 402 10^3/uL (150-450)
[2021-06-22 05:38] LABS: PROTHROMBIN TIME 13.6 SECONDS (12.7-14.5)
[2021-06-22 05:39] LABS: PARTIAL THROMBOPLASTIN TIME 29.5 SECONDS (25.9-37.0)
[2021-06-22 05:40] LABS: ATYPICAL LYMPH 9 % (0-5); EOSINOPHILS 2 % (0-3); LYMPHOCYTES 13 % (16-44); MONOCYTES 3 % (0-5); NEUTROPHILS 73 % (28-66); PLATELET ESTIMATE INCREASED (NORMAL)
[2021-06-22 05:41] LABS: MICROCYTOSIS 1+
[2021-06-22 05:42] LABS: ALT/SGPT 42 U/L (12-78); BILIRUBIN,DIRECT 0.1 MG/DL (0.0-0.2); BILIRUBIN,TOTAL 0.5 MG/DL (0.2-1.0); BLOOD UREA NITROGEN 14 MG/DL (7-18); CARBON DIOXIDE LEVEL 25 MEQ/L (21-32); CHLORIDE LEVEL 109 MEQ/L (98-107); CPK CREATINE PHOSPHOKINASE 53 U/L (26-192); CREATININE FOR GFR 0.79 MG/DL (0.55-1.30); FERRITIN 552 NG/ML (8-252); GLOMERULAR FILTRATION RATE > 60.0 (>45); GLUCOSE, FASTING 182 MG/DL (70-100); LDH LACTATE DEHYDROGENASE 472 U/L (84-246); MAGNESIUM LEVEL 2.3 MG/DL (1.8-2.4); NT-PRO BNP 1424 PG/ML (<125); POTASSIUM SERUM 4.2 MEQ/L (3.5-5.1); SODIUM LEVEL 139 MEQ/L (136-145); TROPONIN I < 0.02 NG/ML (< 0.10)
[2021-06-22] MEDS: HumaLOG INSULIN (NovoLOG) PER UNIT SC SCH ×4 (07:30→21:12)
[2021-06-22 08:00] VITALS: BP 149/75
[2021-06-22] MEDS: guaiFENesin ER 600 MG TAB PO SCH ×2 (09:10→21:11)
[2021-06-22] MEDS: dexameTHASONE 4 MG/ML 1ML VIAL (J1100 PER 1MG) IV SCH (09:10)
[2021-06-22] MEDS: BARICITINIB 2MG TABLET (OLUMIANT) FOR EUA PO SCH (09:11)
[2021-06-22] MEDS: ASPIRIN 81MG ENTERIC TABLET PO SCH (09:11)
[2021-06-22] MEDS: ATORVASTATIN 20 MG TAB PO SCH (09:11)
[2021-06-22] MEDS: ESCITALOPRAM OXALATE 10 MG TAB (LEXAPRO) PO SCH (09:12)
[2021-06-22] MEDS: PANTOPRAZOLE 40MG TAB (PROTONIX) PO SCH (09:13)
[2021-06-22] MEDS: LEVOTHYROXINE 100MCG TABLET (0.1MG) PO SCH (09:13)
[2021-06-22] MEDS: ENOXAPARIN 60MG/0.6ML SYRINGE (J1650 PER 10MG) SC SCH ×2 (09:14→21:12)
--- NOTE | 2021-06-22 10:25 | IPNPDOC ---
Text Note Date of Service The patient was seen on 06/22/21. NOTE Subjective: Patient is a 60-year-old female with a PMHx of Recent COVID19 diagnosis on 06/07/21, HTN, Diastolic CHF (Grade 1), NIDDM2, DLP, Hypothyroidism, Migraines, Depression, Obesity, who presented to the ER with complaints of short of breath. Patient was brought in via ambulance and was placed on CPAP en route. Upon arrival, patient was noted to be hypoxic and was admitted to the hospitalist service for further evaluation and treatment. Overnight patient had a rapid deterioration and required max to Vapotherm therapy at 100% FiO2 and 40 L a minute. She was subsequently transferred to the ICU for further evaluation. Pulmonology was called on consultation. Patient was seen and examined at the bedside. Patient reports that she feels relatively fine. Denies any chest pain, or palpitations. Reports a mild nonproductive cough. Reports that her breathing is doing better. Has not experienced any nausea, vomiting, abdominal pain or diarrhea. Denies any urinary discomfort. Objective: Vitals (See below) General: Patient is lying in bed, appears comfortable without any acute distress. She is awake, alert, oriented 3 HEENT: NC, AT CVS: +S1S2 Lungs: There appears to be fair air entry bilaterally without any auscultated evidence of crackles, wheezing or rhonchi Abdomen: Abdomen remains soft without any distention or tenderness Extremities: Lower extremities are without edema Imaging: CXR 06/18: Diffuse bilateral infiltrates consistent with COVID-19 pulmonary disease. CTA Chest 06/18: 1. No CT evidence of pulmonary embolism or right heart strain. 2. Extensive diffuse bilateral lung infiltrates.Imaging features can be seen with COVID-19 pneumonia, though are nonspecific and can occur with a variety of infectious and noninfectious processes. (Reference: Abiodun) 3. Fatty infiltration of the liver. CXR 06/19: Diffuse significant bilateral multifocal infiltrates essentially unchanged. Assessment and plan: Acute hypoxic respiratory failure - likely 2/2 COVID19 pneumonia, possibly 2/2 superimposed bacterial infection - Currently, patient's breathing is doing better, still reports a mild nonproductive cough - s/p CPAP; c/w Vapotherm; requirements have been improving - COVID19 positive on 06/07 - Imaging noted above - c/w Dexamethasone (Day #5) and Baricitinib (Day #4) - c/w Ceftriaxone and Azithromycin (Day #5 of 7) - c/w Incentive spirometry / Acapella / Mucinex - Pulmonology on consultation; appreciate their input - c/w PT and OT HTN / Chronic HFpEF (Grade 1) - BP appears to be increasing; will continue to trend - Patient reports that she takes lisinopril as an outpatient - will hold for now Depression - c/w Escitalopram Hypothyroidism - c/w Levothyroxine NIDDM2 - A1c of 8.5% - c/w ISS Class 1 obesity - BMI of 40 - Complicating medical care Migraine headaches - c/w Tylenol PRN GI prophylaxis - c/w Protonix (Corticosteroids / Weight based Lovenox prophylaxis) DVT prophylaxis - c/w Lovenox (weight based prophylactic dosing) Disposition: - Awaiting clinical improvement VSAmanda, I+O VSAmanda I+O Laboratory Tests 06/22/21 04:26 Vital Signs Date Time Temp Pulse Resp B/P (MAP) Pulse Ox O2 Delivery O2 Flow Rate FiO2 06/22/21 09:00 73 94 HVNI-Vapotherm 25.0 45 06/22/21 08:00 96.6 16 149/75 (99) I&O- Last 24 Hours up to 6 AM 06/22/21 06:00 Intake Total 1640 ml Output Total 800 ml Balance 840 ml BEULAH HERNANDEZ MD Jun 22, 2021 10:25
[2021-06-22 12:00] VITALS: BP 136/65
[2021-06-22 16:00] VITALS: BP 143/77
[2021-06-22] MEDS: cefTRIAXone SOD 1 GM in D5W MINI-BAG PLUS 50 ML IV SCH (16:54)
[2021-06-22] MEDS: AZITHROMYCIN INJ 500 MG, VIAL MATE ADAPTER 1 EACH in NS 250 ML IV SCH (17:41)
[2021-06-22 21:05] VITALS: BP 128/61
[2021-06-22] MEDS: MONTELUKAST 10 MG TAB PO SCH (21:11)
[2021-06-23 04:00] VITALS: BP 147/69
[2021-06-23 08:29] LABS: HEMATOCRIT 38.3 % (36.0-47.0); HEMOGLOBIN 12.5 g/dl (12.0-15.5); MEAN CORPUSCULAR HEMOGLOBIN 28.7 pg (27.0-33.0); MEAN CORPUSCULAR HGB CONC 32.6 g/dl (32.0-36.5); PLATELET COUNT, AUTOMATED 413 10^3/uL (150-450); RED BLOOD COUNT 4.35 10^6/uL (4.00-5.40)
[2021-06-23] MEDS: ENOXAPARIN 60MG/0.6ML SYRINGE (J1650 PER 10MG) SC SCH ×2 (08:29→20:09)
[2021-06-23 08:30] VITALS: BP 144/66
[2021-06-23] MEDS: HumaLOG INSULIN (NovoLOG) PER UNIT SC SCH ×4 (08:30→20:28)
[2021-06-23] MEDS: dexameTHASONE 4 MG/ML 1ML VIAL (J1100 PER 1MG) IV SCH (08:31)
[2021-06-23] MEDS: ATORVASTATIN 20 MG TAB PO SCH (08:32)
[2021-06-23] MEDS: LEVOTHYROXINE 100MCG TABLET (0.1MG) PO SCH (08:32)
[2021-06-23] MEDS: ASPIRIN 81MG ENTERIC TABLET PO SCH (08:32)
[2021-06-23] MEDS: ESCITALOPRAM OXALATE 10 MG TAB (LEXAPRO) PO SCH (08:32)
[2021-06-23] MEDS: PANTOPRAZOLE 40MG TAB (PROTONIX) PO SCH (08:32)
[2021-06-23] MEDS: BARICITINIB 2MG TABLET (OLUMIANT) FOR EUA PO SCH (08:32)
[2021-06-23] MEDS: guaiFENesin ER 600 MG TAB PO SCH ×2 (08:32→20:28)
[2021-06-23 08:50] LABS: ALT/SGPT 50 U/L (12-78); BILIRUBIN,TOTAL 0.6 MG/DL (0.2-1.0); BLOOD UREA NITROGEN 13 MG/DL (7-18); CALCIUM LEVEL 8.2 MG/DL (8.8-10.2); CARBON DIOXIDE LEVEL 25 MEQ/L (21-32); CHLORIDE LEVEL 107 MEQ/L (98-107); GLOMERULAR FILTRATION RATE > 60.0 (>45); GLUCOSE, FASTING 130 MG/DL (70-100); MAGNESIUM LEVEL 2.1 MG/DL (1.8-2.4); POTASSIUM SERUM 4.4 MEQ/L (3.5-5.1); SODIUM LEVEL 139 MEQ/L (136-145); TOTAL PROTEIN 5.6 GM/DL (6.4-8.2)
[2021-06-23 09:11] LABS: ATYPICAL LYMPH 2 % (0-5); EOSINOPHILS 1 % (0-3); LYMPHOCYTES 11 % (16-44); METAMYELOCYTES 2 % (0-0); MONOCYTES 4 % (0-5); MYELOCYTES 1 % (0-0); NEUTROPHILS 76 % (28-66); PLATELET ESTIMATE INCREASED (NORMAL)
[2021-06-23 09:12] LABS: PLATELET CLUMPS SMALL AMT; SMUDGE CELLS 1+
--- NOTE | 2021-06-23 10:23 | IPNPDOC ---
Text Note Date of Service The patient was seen on 06/23/21. NOTE Subjective: Patient is a 60-year-old female with a PMHx of Recent COVID19 diagnosis on 06/07/21, HTN, Diastolic CHF (Grade 1), NIDDM2, DLP, Hypothyroidism, Migraines, Depression, Obesity, who presented to the ER with complaints of short of breath. Patient was brought in via ambulance and was placed on CPAP en route. Upon arrival, patient was noted to be hypoxic and was admitted to the hospitalist service for further evaluation and treatment. Overnight patient had a rapid deterioration and required max to Vapotherm therapy at 100% FiO2 and 40 L a minute. She was subsequently transferred to the ICU for further evaluation. Pulmonology was called on consultation. Patient was seen and examined at the bedside. Patient is sitting up in bed, appears relatively comfortable. Denies any chest pain or palpitations. Reports a mild cough. Reports that her breathing is doing relatively fine. He has any nausea, vomiting, abdominal pain. Reports some loose bowel movements. Denies any urinary discomfort. Objective: Vitals (See below) General: Patient is sitting up in bed, appears comfortable without any acute distress, awake, alert, oriented 3 HEENT: Atraumatic and normocephalic CVS: +S1S2 Lungs: Appear to have fair air entry bilaterally, no auscultated crackles, wheezing or rhonchi Abdomen: Soft without distention or tenderness Extremities: No edema Imaging: CXR 06/18: Diffuse bilateral infiltrates consistent with COVID-19 pulmonary disease. CTA Chest 06/18: 1. No CT evidence of pulmonary embolism or right heart strain. 2. Extensive diffuse bilateral lung infiltrates.Imaging features can be seen with COVID-19 pneumonia, though are nonspecific and can occur with a variety of infectious and noninfectious processes. (Reference: Abiodun) 3. Fatty infiltration of the liver. CXR 06/19: Diffuse significant bilateral multifocal infiltrates essentially unchanged. Assessment and plan: Acute hypoxic respiratory failure - likely 2/2 COVID19 pneumonia, possibly 2/2 superimposed bacterial infection - Clinically has had improvement; still reports a mild nonproductive cough - Patient has been transitioned off of Vapotherm and has been placed on high flow - s/p CPAP - COVID19 positive on 06/07 - Imaging noted above - c/w Dexamethasone (Day #6) and Baricitinib (Day #5) - c/w Ceftriaxone and Azithromycin (Day #6 of 7) - c/w Incentive spirometry / Acapella / Mucinex - Pulmonology had evaluated patient earlier - have signed off - c/w PT and OT HTN / Chronic HFpEF (Grade 1) - BP appears to be increasing; will continue to trend - Patient reports that she takes lisinopril as an outpatient - will hold for now Depression - c/w Escitalopram Hypothyroidism - c/w Levothyroxine NIDDM2 - A1c of 8.5% - c/w ISS Class 1 obesity - BMI of 40 - Complicating medical care Migraine headaches - c/w Tylenol PRN GI prophylaxis - c/w Protonix (Corticosteroids / Weight based Lovenox prophylaxis) DVT prophylaxis - c/w Lovenox (weight based prophylactic dosing) Disposition: - Awaiting clinical improvement - Will start PT - Anticipate DC within 24-48 hours VS,Fishbone, I+O VS, Fishbone, I+O Laboratory Tests 06/23/21 07:09 Vital Signs Date Time Temp Pulse Resp B/P (MAP) Pulse Ox O2 Delivery O2 Flow Rate FiO2 06/23/21 09:12 84 High Flow Cannula 10.0 06/23/21 08:30 98.6 68 22 144/66 (92) 06/22/21 16:00 50 I&O- Last 24 Hours up to 6 AM 06/23/21 06:00 Intake Total 1045 ml Output Total 450 ml Balance 595 ml BEULAH HERNANDEZ MD Jun 23, 2021 10:23
[2021-06-23 14:00] VITALS: BP 137/73
[2021-06-23] MEDS: cefTRIAXone SOD 1 GM in D5W MINI-BAG PLUS 50 ML IV SCH (17:36)
[2021-06-23] MEDS: AZITHROMYCIN INJ 500 MG, VIAL MATE ADAPTER 1 EACH in NS 250 ML IV SCH (18:36)
[2021-06-23 20:00] VITALS: BP 123/58
[2021-06-23] MEDS: MONTELUKAST 10 MG TAB PO SCH (20:07)
[2021-06-24 04:00] VITALS: BP 155/72
[2021-06-24] MEDS: ESCITALOPRAM OXALATE 10 MG TAB (LEXAPRO) PO SCH (08:47)
[2021-06-24] MEDS: LEVOTHYROXINE 100MCG TABLET (0.1MG) PO SCH (08:47)
[2021-06-24] MEDS: ENOXAPARIN 60MG/0.6ML SYRINGE (J1650 PER 10MG) SC SCH ×2 (08:47→22:43)
[2021-06-24] MEDS: PANTOPRAZOLE 40MG TAB (PROTONIX) PO SCH (08:47)
[2021-06-24] MEDS: guaiFENesin ER 600 MG TAB PO SCH ×2 (08:48→22:43)
[2021-06-24] MEDS: HumaLOG INSULIN (NovoLOG) PER UNIT SC SCH ×4 (08:48→21:00)
[2021-06-24] MEDS: ATORVASTATIN 20 MG TAB PO SCH (08:48)
[2021-06-24] MEDS: ASPIRIN 81MG ENTERIC TABLET PO SCH (08:48)
[2021-06-24] MEDS: dexameTHASONE 4 MG/ML 1ML VIAL (J1100 PER 1MG) IV SCH (08:49)
--- NOTE | 2021-06-24 09:15 | IPNPDOC ---
Text Note Date of Service The patient was seen on 06/24/21. NOTE Subjective: Patient is a 60-year-old female with a PMHx of Recent COVID19 diagnosis on 06/07/21, HTN, Diastolic CHF (Grade 1), NIDDM2, DLP, Hypothyroidism, Migraines, Depression, Obesity, who presented to the ER with complaints of short of breath. Patient was brought in via ambulance and was placed on CPAP en route. Upon arrival, patient was noted to be hypoxic and was admitted to the hospitalist service for further evaluation and treatment. Overnight patient had a rapid deterioration and required max to Vapotherm therapy at 100% FiO2 and 40 L a minute. She was subsequently transferred to the ICU for further evaluation. Pulmonology was called on consultation. Patient was seen and examined at the bedside. Currently patient denies any chest pain, or, palpitations. Denies any abdominal pain or diarrhea. Reports her breathing is doing better. Denies any significant productive cough. Denies any urinary discomfort Objective: Vitals (See below) General: Patient is lying in bed on her side, appears comfortable, without any acute distress. She is awake, alert, oriented 3 HEENT: AT, NC CVS: +S1S2 Lungs: There does not appear to be any auscultated evidence of crackles, rhonchi Abdomen: Abdomen her abdomen is soft without any appreciated distention or tenderness Extremities: Lower extremities are without any edema Imaging: CXR 06/18: Diffuse bilateral infiltrates consistent with COVID-19 pulmonary disease. CTA Chest 06/18: 1. No CT evidence of pulmonary embolism or right heart strain. 2. Extensive diffuse bilateral lung infiltrates.Imaging features can be seen with COVID-19 pneumonia, though are nonspecific and can occur with a variety of infectious and noninfectious processes. (Reference: Abiodun) 3. Fatty infiltration of the liver. CXR 06/19: Diffuse significant bilateral multifocal infiltrates essentially unchanged. Assessment and plan: Acute hypoxic respiratory failure - likely 2/2 COVID19 pneumonia, possibly 2/2 superimposed bacterial infection - Patient reports that she feels better. Reports a mild nonproductive cough - Patient is currently on nasal cannula oxygen at 7 L; will continue to titrate down - s/p Vapotherm and CPAP - COVID19 positive on 06/07 - Imaging noted above - c/w Dexamethasone (Day #7) and Baricitinib (Day #6) - Will complete Ceftriaxone and Azithromycin today (Day #7 of 7) - c/w Incentive spirometry / Acapella / Mucinex - Pulmonology had evaluated patient earlier - have signed off - c/w PT and OT - recommending home with services HTN / Chronic HFpEF (Grade 1) - BP appears to be increasing; will continue to trend - Patient reports that she takes lisinopril as an outpatient - will hold for now Depression - c/w Escitalopram Hypothyroidism - c/w Levothyroxine NIDDM2 - A1c of 8.5% - c/w ISS Class 1 obesity - BMI of 40 - Complicating medical care Migraine headaches - c/w Tylenol PRN GI prophylaxis - c/w Protonix (Corticosteroids / Weight based Lovenox prophylaxis) DVT prophylaxis - c/w Lovenox (weight based prophylactic dosing) Disposition: - Awaiting clinical improvement - c/w PT and OT; anticipate DC within 24-48 hours VS,Fishbone, I+O VS, Fishbone, I+O Vital Signs Date Time Temp Pulse Resp B/P (MAP) Pulse Ox O2 Delivery O2 Flow Rate FiO2 06/24/21 04:00 98.2 68 20 155/72 (99) 92 High Flow Cannula 7.0 06/22/21 16:00 50 I&O- Last 24 Hours up to 6 AM 06/24/21 05:59 Intake Total 1080 ml Output Total 350 ml Balance 730 ml BEULAH HERNANDEZ MD Jun 24, 2021 09:15
[2021-06-24 10:24] LABS: HEMOGLOBIN 12.3 g/dl (12.0-15.5); MEAN CORPUSCULAR HEMOGLOBIN 29.4 pg (27.0-33.0); MEAN CORPUSCULAR HGB CONC 33.2 g/dl (32.0-36.5); MEAN CORPUSCULAR VOLUME 88.5 fl (80.0-96.0); PLATELET COUNT, AUTOMATED 445 10^3/uL (150-450); RED BLOOD COUNT 4.18 10^6/uL (4.00-5.40); WHITE BLOOD COUNT 16.2 10^3/uL (4.0-10.0)
[2021-06-24 10:38] LABS: INR 1.1; PROTHROMBIN TIME 14.6 SECONDS (12.7-14.5)
[2021-06-24 10:39] LABS: PARTIAL THROMBOPLASTIN TIME 30.5 SECONDS (25.9-37.0)
[2021-06-24] MEDS: BARICITINIB 2MG TABLET (OLUMIANT) FOR EUA PO SCH (10:45)
[2021-06-24 11:00] LABS: ALT/SGPT 53 U/L (12-78); BILIRUBIN,DIRECT 0.2 MG/DL (0.0-0.2); BILIRUBIN,TOTAL 0.5 MG/DL (0.2-1.0); BLOOD UREA NITROGEN 15 MG/DL (7-18); CALCIUM LEVEL 8.6 MG/DL (8.8-10.2); CARBON DIOXIDE LEVEL 27 MEQ/L (21-32); CHLORIDE LEVEL 105 MEQ/L (98-107); CPK CREATINE PHOSPHOKINASE 33 U/L (26-192); FERRITIN 520 NG/ML (8-252); GLOMERULAR FILTRATION RATE > 60.0 (>45); GLUCOSE, FASTING 198 MG/DL (70-100); LDH LACTATE DEHYDROGENASE 409 U/L (84-246); MAGNESIUM LEVEL 1.8 MG/DL (1.8-2.4); NT-PRO BNP 1157 PG/ML (<125); POTASSIUM SERUM 4.2 MEQ/L (3.5-5.1); SODIUM LEVEL 138 MEQ/L (136-145); TOTAL PROTEIN 5.5 GM/DL (6.4-8.2); TROPONIN I < 0.02 NG/ML (< 0.10)
[2021-06-24 11:16] LABS: ATYPICAL LYMPH 2 % (0-5); EOSINOPHILS 2 % (0-3); LYMPHOCYTES 9 % (16-44); MONOCYTES 6 % (0-5); NEUTROPHILS 76 % (28-66)
[2021-06-24 11:17] LABS: PLATELET CLUMPS SMALL AMT; PLATELET ESTIMATE INCREASED (NORMAL)
[2021-06-24] MEDS: cefTRIAXone SOD 1 GM in D5W MINI-BAG PLUS 50 ML IV SCH (17:35)
[2021-06-24] MEDS: AZITHROMYCIN INJ 500 MG, VIAL MATE ADAPTER 1 EACH in NS 250 ML IV SCH (18:31)
[2021-06-24 18:54] VITALS: BP 132/63
[2021-06-24 20:00] VITALS: BP 119/55
[2021-06-24] MEDS: MONTELUKAST 10 MG TAB PO SCH (22:43)
[2021-06-25 06:00] VITALS: BP 156/70
[2021-06-25 06:32] LABS: HEMOGLOBIN 12.5 g/dl (12.0-15.5); MEAN CORPUSCULAR HEMOGLOBIN 29.1 pg (27.0-33.0); MEAN CORPUSCULAR HGB CONC 32.9 g/dl (32.0-36.5); MEAN CORPUSCULAR VOLUME 88.4 fl (80.0-96.0); PLATELET COUNT, AUTOMATED 427 10^3/uL (150-450); WHITE BLOOD COUNT 15.8 10^3/uL (4.0-10.0)
[2021-06-25 06:52] LABS: ALT/SGPT 65 U/L (12-78); BILIRUBIN,TOTAL 0.6 MG/DL (0.2-1.0); BLOOD UREA NITROGEN 17 MG/DL (7-18); CALCIUM LEVEL 8.6 MG/DL (8.8-10.2); CARBON DIOXIDE LEVEL 28 MEQ/L (21-32); CHLORIDE LEVEL 104 MEQ/L (98-107); CREATININE FOR GFR 0.78 MG/DL (0.55-1.30); GLOMERULAR FILTRATION RATE > 60.0 (>45); GLUCOSE, FASTING 163 MG/DL (70-100); POTASSIUM SERUM 4.4 MEQ/L (3.5-5.1); SODIUM LEVEL 137 MEQ/L (136-145); TOTAL PROTEIN 6.1 GM/DL (6.4-8.2)
[2021-06-25 07:04] LABS: ATYPICAL LYMPH 4 % (0-5); EOSINOPHILS 2 % (0-3); LYMPHOCYTES 14 % (16-44); MONOCYTES 4 % (0-5); NEUTROPHILS 76 % (28-66)
[2021-06-25 07:05] LABS: PLATELET ESTIMATE INCREASED (NORMAL)
[2021-06-25] MEDS: HumaLOG INSULIN (NovoLOG) PER UNIT SC SCH ×4 (07:52→20:50)
[2021-06-25] MEDS: dexameTHASONE 4 MG/ML 1ML VIAL (J1100 PER 1MG) IV SCH (07:52)
[2021-06-25] MEDS: PANTOPRAZOLE 40MG TAB (PROTONIX) PO SCH (07:53)
[2021-06-25] MEDS: ENOXAPARIN 60MG/0.6ML SYRINGE (J1650 PER 10MG) SC SCH ×2 (07:53→20:51)
[2021-06-25] MEDS: ATORVASTATIN 20 MG TAB PO SCH (07:53)
[2021-06-25] MEDS: ESCITALOPRAM OXALATE 10 MG TAB (LEXAPRO) PO SCH (07:55)
[2021-06-25] MEDS: LEVOTHYROXINE 100MCG TABLET (0.1MG) PO SCH (07:55)
[2021-06-25] MEDS: BARICITINIB 2MG TABLET (OLUMIANT) FOR EUA PO SCH (07:56)
[2021-06-25] MEDS: guaiFENesin ER 600 MG TAB PO SCH ×2 (07:56→20:50)
[2021-06-25] MEDS: ASPIRIN 81MG ENTERIC TABLET PO SCH (07:57)
--- NOTE | 2021-06-25 13:40 | IPNPDOC ---
Date Seen The patient was seen on 06/25/21. Progress Note SUBJECTIVE: Patient seen examined at bedside. Appears comfortable sitting upright nasal cannula in place 3 L. Saturating at 96%. Denies any chest pain palpitations nausea vomiting diarrhea. Ambulates without exertion around bed. OBJECTIVE PHYSICAL EXAMINATION: VITAL SIGNS: please see below General: NAD, comfortable HEENT: PERRLA, EOMI, sclerae clear Neck: supple, normal ROM, no JVD Respiratory: Bilateral rhonchi with fair inspiratory effort, no wheezes no crackles. CVS: RRR, normal S1, S2, no murmurs Abdo: soft, no masses, no hepatosplenomegaly, BS+, no rebound tenderness Extremities: no edema, pulses 2+ MSK: no joint deformities, normal ROM Neuro: no focal neuro deficits, moving all 4 extremities, CN2-12 intact. Strength 5/5 in all 4 extremities. No nystagmus. Psych: calm, cooperative, AAO x 3 LABORATORY DATA, IMAGING STUDIES, MICROBIOLOGY: Please see below. DVT prophylaxis ordered?: Lovenox Covid dosing 50 mg twice daily subcutaneous ASSESSMENT AND PLAN:60-year-old female with a PMHx of Recent COVID19 diagnosis on 06/07/21, HTN, Diastolic CHF (Grade 1), NIDDM2, DLP, Hypothyroidism, Migraines, Depression, Obesity, who presented to the ER with complaints of short of breath. Patient was brought in via ambulance and was placed on CPAP en route. Upon arrival, patient was noted to be hypoxic and was admitted to the hospitalist service for further evaluation and treatment. PROBLEMS: Acute hypoxic respiratory failure - likely 2/2 COVID19 pneumonia, possibly 2/2 superimposed bacterial infection - Patient reports that she feels better. Reports a mild nonproductive cough - Patient is currently on nasal cannula oxygen at 7 L; will continue to titrate down - s/p Vapotherm and CPAP - COVID19 positive on 06/07 - Imaging noted above - c/w Dexamethasone (Day #8) and Baricitinib (Day #7) - Completed Ceftriaxone and Azithromycin today (Day #7 of 7) - c/w Incentive spirometry / Acapella / Mucinex - Pulmonology had evaluated patient earlier - have signed off - c/w PT and OT - recommending home with services HTN / Chronic HFpEF (Grade 1) - BP appears to be increasing; will continue to trend - Patient reports that she takes lisinopril as an outpatient - will hold for now Depression - c/w Escitalopram Hypothyroidism - c/w Levothyroxine NIDDM2 - A1c of 8.5% - c/w ISS Class 1 obesity - BMI of 40 - Complicating medical care Migraine headaches - c/w Tylenol PRN GI prophylaxis - c/w Protonix (Corticosteroids / Weight based Lovenox prophylaxis) DVT prophylaxis - c/w Lovenox (weight based prophylactic dosing) Disposition: - Awaiting clinical improvement - c/w PT and OT; anticipate DC within 24-48 hours VS, I&O, 24H, Fishbone Vital Signs/I&O Vital Signs Date Time Temp Pulse Resp B/P (MAP) Pulse Ox O2 Delivery O2 Flow Rate FiO2 06/25/21 11:23 8.0 06/25/21 06:00 97.3 56 18 156/70 (98) 96 High Flow Cannula 06/22/21 16:00 50 I&O- Last 24 Hours up to 6 AM 06/25/21 06:00 Intake Total 890 ml Balance 890 ml Laboratory Data 24H LABS Laboratory Tests 2 06/24/21 17:30: Bedside Glucose (Misc Panel) 314H 06/24/21 22:04: Bedside Glucose (Misc Panel) 228H 06/25/21 06:13: Immature Granulocyte % (Auto) , Neutrophils (%) (Auto) , Nucleated Red Blood Cells % (auto) 0.0, Neutrophils 76H, Lymphocytes (Manual) 14L, Monocytes (Manual) 4, Eosinophils (Manual) 2, Atypical Lymphocytes 4, Red Blood Cell Morph ology NORMAL, Platelet Estimate INCREASED, Anion Gap 5L, Glomerular Filtration Rate > 60.0, Calcium Level 8.6L, Magnesium Level 2.0, Total Bilirubin 0.6, Aspartate Amino Transf (AST/SGOT) 23, Alanine Aminotransferase (ALT/SGPT) 65, Alkaline Phosphatase 100, Total Protein 6.1L, Albumin 2.0L, Albumin/Globulin Ratio 0.5L 06/25/21 12:05: Bedside Glucose (Misc Panel) 288H CBC/BMP Laboratory Tests 06/25/21 06:13 Microbiology Microbiology 06/18/21 Respiratory Virus Panel (PCR) (MARCELO) - Final, Complete SARS-CoV-2 (COVID 19) 06/18/21 Blood Culture - Final, Complete NO GROWTH AFTER 5 DAYS 06/18/21 Blood Culture - Final, Complete NO GROWTH AFTER 5 DAYS PENG BLANCO MD Jun 25, 2021 13:40
[2021-06-25 14:00] VITALS: BP 100/54
[2021-06-25 20:00] VITALS: BP 101/55
[2021-06-25] MEDS: MONTELUKAST 10 MG TAB PO SCH (20:50)
[2021-06-26] VITALS (7 sets, daily range): BP systolic 93–126; BP diastolic 63–80; O2SAT 94–98
[2021-06-26 08:05] LABS: BASO % 0.2 % (0.0-1.0); EOS # 0.2 10^3/uL (0.0-0.5); HEMATOCRIT 39.3 % (36.0-47.0); HEMOGLOBIN 12.9 g/dl (12.0-15.5); LYMPH # 2.3 10^3/uL (1.5-5.0); LYMPH % 13.2 % (24.0-44.0); MEAN CORPUSCULAR HEMOGLOBIN 29.3 pg (27.0-33.0); MEAN CORPUSCULAR HGB CONC 32.8 g/dl (32.0-36.5); MEAN CORPUSCULAR VOLUME 89.1 fl (80.0-96.0); MONO # 1.1 10^3/uL (0.0-0.8); MONO % 6.2 % (2.0-8.0); NEUTROPHILS # 12.9 10^3/uL (1.5-8.5); NEUTROPHILS % 74.5 % (36.0-66.0); PLATELET COUNT, AUTOMATED 437 10^3/uL (150-450); RED BLOOD COUNT 4.41 10^6/uL (4.00-5.40); WHITE BLOOD COUNT 17.3 10^3/uL (4.0-10.0)
[2021-06-26 08:35] LABS: ALBUMIN 2.1 GM/DL (3.2-5.2); ALT/SGPT 66 U/L (12-78); BILIRUBIN,TOTAL 0.4 MG/DL (0.2-1.0); BLOOD UREA NITROGEN 16 MG/DL (7-18); CALCIUM LEVEL 8.6 MG/DL (8.8-10.2); CARBON DIOXIDE LEVEL 30 MEQ/L (21-32); CHLORIDE LEVEL 102 MEQ/L (98-107); CREATININE FOR GFR 0.73 MG/DL (0.55-1.30); GLOMERULAR FILTRATION RATE > 60.0 (>45); GLUCOSE, FASTING 169 MG/DL (70-100); POTASSIUM SERUM 4.3 MEQ/L (3.5-5.1); SODIUM LEVEL 137 MEQ/L (136-145); TOTAL PROTEIN 6.1 GM/DL (6.4-8.2)
[2021-06-26] MEDS: dexameTHASONE 4 MG/ML 1ML VIAL (J1100 PER 1MG) IV SCH (08:49)
[2021-06-26] MEDS: ATORVASTATIN 20 MG TAB PO SCH (08:50)
[2021-06-26] MEDS: guaiFENesin ER 600 MG TAB PO SCH ×2 (08:50→20:16)
[2021-06-26] MEDS: HumaLOG INSULIN (NovoLOG) PER UNIT SC SCH ×4 (08:50→20:17)
[2021-06-26] MEDS: ENOXAPARIN 60MG/0.6ML SYRINGE (J1650 PER 10MG) SC SCH ×2 (08:50→20:17)
[2021-06-26] MEDS: ESCITALOPRAM OXALATE 10 MG TAB (LEXAPRO) PO SCH (08:51)
[2021-06-26] MEDS: PANTOPRAZOLE 40MG TAB (PROTONIX) PO SCH (08:51)
[2021-06-26] MEDS: LEVOTHYROXINE 100MCG TABLET (0.1MG) PO SCH (08:51)
[2021-06-26] MEDS: ASPIRIN 81MG ENTERIC TABLET PO SCH (08:51)
[2021-06-26] MEDS: BARICITINIB 2MG TABLET (OLUMIANT) FOR EUA PO SCH (10:54)
--- NOTE | 2021-06-26 12:12 | IPNPDOC ---
Date Seen The patient was seen on 06/26/21. Progress Note SUBJECTIVE: Patient was seen examined at bedside. She is comfortable lying in bed. Presently 8 L of high flow nasal cannula. She saturating 95%. She denies any chest pain shortness of breath cavitations nausea vomiting diarrhea. OBJECTIVE PHYSICAL EXAMINATION: VITAL SIGNS: please see below General: NAD, comfortable HEENT: PERRLA, EOMI, sclerae clear Neck: supple, normal ROM, no JVD Respiratory: Bilateral rhonchi with fair inspiratory effort, no wheezes no crackles. CVS: RRR, normal S1, S2, no murmurs Abdo: soft, no masses, no hepatosplenomegaly, BS+, no rebound tenderness Extremities: no edema, pulses 2+ MSK: no joint deformities, normal ROM Neuro: no focal neuro deficits, moving all 4 extremities, CN2-12 intact. Strength 5/5 in all 4 extremities. No nystagmus. Psych: calm, cooperative, AAO x 3 LABORATORY DATA, IMAGING STUDIES, MICROBIOLOGY: Please see below. DVT prophylaxis ordered?: Lovenox Covid dosing 50 mg twice daily subcutaneous ASSESSMENT AND PLAN:60-year-old female with a PMHx of Recent COVID19 diagnosis on 06/07/21, HTN, Diastolic CHF (Grade 1), NIDDM2, DLP, Hypothyroidism, Migraines, Depression, Obesity, who presented to the ER with complaints of short of breath. Patient was placed on CPAP in the ambulance en route.. PROBLEMS: Acute hypoxic respiratory failure - likely 2/2 COVID19 pneumonia, possibly 2/2 superimposed bacterial infection - Patient reports that she feels better. Reports a mild nonproductive cough -Patient continues to require 7 to 8 L of oxygen. - s/p Vapotherm and CPAP - COVID19 positive on 06/07 - Imaging noted above - c/w Dexamethasone (Day #9) and Baricitinib (Day #8) - Completed Ceftriaxone and Azithromycin (7 days) - c/w Incentive spirometry / Acapella / Mucinex - Pulmonology had evaluated patient earlier - have signed off - PT and OT - recommending home with services HTN / Chronic HFpEF (Grade 1) - BP appears to be increasing; will continue to trend -Patient states takes lisinopril at home. Blood pressures have been appropriate we will hold for now. Depression - c/w Escitalopram Hypothyroidism - c/w Levothyroxine NIDDM2 - A1c of 8.5% - c/w ISS Class 1 obesity - BMI of 40 - Complicating medical care Migraine headaches - c/w Tylenol PRN GI prophylaxis - c/w Protonix (Corticosteroids / Weight based Lovenox prophylaxis) DVT prophylaxis - c/w Lovenox (weight based prophylactic dosing) Disposition: - Awaiting clinical improvement - anticipate DC within 24-48 hours, assuming oxygen requirements dropped to 2 L/min. - PT OT recommending home with services VS, I&O, 24H, Fishbone Vital Signs/I&O Vital Signs Date Time Temp Pulse Resp B/P (MAP) Pulse Ox O2 Delivery O2 Flow Rate FiO2 06/26/21 10:06 7.0 06/26/21 04:00 97.8 52 18 126/63 (84) 95 High Flow Cannula 06/22/21 16:00 50 I&O- Last 24 Hours up to 6 AM 06/26/21 06:00 Intake Total 2390 ml Output Total 800 ml Balance 1590 ml Laboratory Data 24H LABS Laboratory Tests 2 06/25/21 16:57: Bedside Glucose (Misc Panel) 366H 06/25/21 20:12: Bedside Glucose (Misc Panel) 352H 06/26/21 07:44: Immature Granulocyte % (Auto) 4.9H, Neutrophils (%) (Auto) 74.5H, Lymphocytes (%) (Auto) 13.2L, Monocytes (%) (Auto) 6.2, Eosinophils (%) (Auto) 1.0, Basophils (%) (Auto) 0.2, Neutrophils # (Auto) 12.9H, Lymphocytes # (Auto) 2.3, Monocytes # (Auto) 1.1H, Eosinophils # (Auto) 0.2, Basophils # (Auto) 0.0, Nucleated Red Blood Cells % (auto) 0.0, Anion Gap 5L, Glomerular Filtration Rate > 60.0, Calcium Level 8.6L, Magnesium Level 2.0, Total Bilirubin 0.4, Aspartate Amino Transf (AST/SGOT) 17, Alanine Aminotransferase (ALT/SGPT) 66, Alkaline Phosphatase 89, Total Protein 6.1L, Albumin 2.1L, Albumin/Globulin Ratio 0.5L 06/26/21 11:45: Bedside Glucose (Misc Panel) 198H CBC/BMP Laboratory Tests 06/26/21 07:44 Microbiology Microbiology 06/18/21 Respiratory Virus Panel (PCR) (MARCELO) - Final, Complete SARS-CoV-2 (COVID 19) 06/18/21 Blood Culture - Final, Complete NO GROWTH AFTER 5 DAYS 06/18/21 Blood Culture - Final, Complete NO GROWTH AFTER 5 DAYS PENG BLANCO MD Jun 26, 2021 12:12
[2021-06-26] MEDS: MONTELUKAST 10 MG TAB PO SCH (20:16)
[2021-06-27 06:03] LABS: BASO % 0.3 % (0.0-1.0); EOS # 0.1 10^3/uL (0.0-0.5); EOS % 0.7 % (0.0-3.0); HEMATOCRIT 39.9 % (36.0-47.0); HEMOGLOBIN 13.1 g/dl (12.0-15.5); LYMPH # 2.3 10^3/uL (1.5-5.0); MEAN CORPUSCULAR HEMOGLOBIN 29.7 pg (27.0-33.0); MEAN CORPUSCULAR HGB CONC 32.8 g/dl (32.0-36.5); MEAN CORPUSCULAR VOLUME 90.5 fl (80.0-96.0); MONO # 1.1 10^3/uL (0.0-0.8); MONO % 7.2 % (2.0-8.0); NEUTROPHILS % 72.9 % (36.0-66.0); PLATELET COUNT, AUTOMATED 476 10^3/uL (150-450); RED BLOOD COUNT 4.41 10^6/uL (4.00-5.40)
[2021-06-27 06:10] VITALS: BP 139/62
[2021-06-27 06:28] LABS: ALBUMIN 2.1 GM/DL (3.2-5.2); ALT/SGPT 68 U/L (12-78); BILIRUBIN,TOTAL 0.5 MG/DL (0.2-1.0); BLOOD UREA NITROGEN 18 MG/DL (7-18); CALCIUM LEVEL 8.4 MG/DL (8.8-10.2); CARBON DIOXIDE LEVEL 31 MEQ/L (21-32); CHLORIDE LEVEL 101 MEQ/L (98-107); CREATININE FOR GFR 0.88 MG/DL (0.55-1.30); GLOMERULAR FILTRATION RATE > 60.0 (>45); GLUCOSE, FASTING 185 MG/DL (70-100); POTASSIUM SERUM 4.6 MEQ/L (3.5-5.1); SODIUM LEVEL 137 MEQ/L (136-145); TOTAL PROTEIN 6.2 GM/DL (6.4-8.2)
[2021-06-27] MEDS: ENOXAPARIN 60MG/0.6ML SYRINGE (J1650 PER 10MG) SC SCH ×2 (10:02→20:58)
[2021-06-27] MEDS: dexameTHASONE 4 MG/ML 1ML VIAL (J1100 PER 1MG) IV SCH (10:03)
[2021-06-27] MEDS: HumaLOG INSULIN (NovoLOG) PER UNIT SC SCH ×4 (10:03→21:00)
[2021-06-27] MEDS: BARICITINIB 2MG TABLET (OLUMIANT) FOR EUA PO SCH (10:04)
[2021-06-27] MEDS: ATORVASTATIN 20 MG TAB PO SCH (10:04)
[2021-06-27] MEDS: ASPIRIN 81MG ENTERIC TABLET PO SCH (10:04)
[2021-06-27] MEDS: LEVOTHYROXINE 100MCG TABLET (0.1MG) PO SCH (10:04)
[2021-06-27] MEDS: guaiFENesin ER 600 MG TAB PO SCH ×2 (10:04→20:58)
[2021-06-27] MEDS: ESCITALOPRAM OXALATE 10 MG TAB (LEXAPRO) PO SCH (10:05)
[2021-06-27] MEDS: PANTOPRAZOLE 40MG TAB (PROTONIX) PO SCH (10:05)
[2021-06-27 14:00] VITALS: BP 93/50
--- NOTE | 2021-06-27 18:18 | IPNPDOC ---
Date Seen The patient was seen on 06/27/21. Progress Note SUBJECTIVE: Patient was seen examined at bedside. She is comfortable lying in bed. Presently 8 L of high flow nasal cannula. She saturating 95%. She denies any chest pain shortness of breath cavitations nausea vomiting diarrhea. OBJECTIVE PHYSICAL EXAMINATION: VITAL SIGNS: please see below General: NAD, comfortable HEENT: PERRLA, EOMI, sclerae clear Neck: supple, normal ROM, no JVD Respiratory: Bilateral rhonchi with fair inspiratory effort, no wheezes no crackles. CVS: RRR, normal S1, S2, no murmurs Abdo: soft, no masses, no hepatosplenomegaly, BS+, no rebound tenderness Extremities: no edema, pulses 2+ MSK: no joint deformities, normal ROM Neuro: no focal neuro deficits, moving all 4 extremities, CN2-12 intact. Strength 5/5 in all 4 extremities. No nystagmus. Psych: calm, cooperative, AAO x 3 LABORATORY DATA, IMAGING STUDIES, MICROBIOLOGY: Please see below. DVT prophylaxis ordered?: Lovenox Covid dosing 50 mg twice daily subcutaneous ASSESSMENT AND PLAN:60-year-old female with a PMHx of Recent COVID19 diagnosis on 06/07/21, HTN, Diastolic CHF (Grade 1), NIDDM2, DLP, Hypothyroidism, Migraines, Depression, Obesity, who presented to the ER with complaints of short of breath. Patient was placed on CPAP in the ambulance en route.. PROBLEMS: Acute hypoxic respiratory failure - likely 2/2 COVID19 pneumonia, possibly 2/2 superimposed bacterial infection - Patient reports that she feels better. Reports a mild nonproductive cough -Patient continues to require 7 to 8 L of oxygen. - s/p Vapotherm and CPAP - COVID19 positive on 06/07 - Imaging noted above - c/w Dexamethasone (Day #9) and Baricitinib (Day #8) - Completed Ceftriaxone and Azithromycin (7 days) - c/w Incentive spirometry / Acapella / Mucinex - Pulmonology had evaluated patient earlier - have signed off - PT and OT - recommending home with services HTN / Chronic HFpEF (Grade 1) - BP appears to be increasing; will continue to trend -Patient states takes lisinopril at home. Blood pressures have been appropriate we will hold for now. Depression - c/w Escitalopram Hypothyroidism - c/w Levothyroxine NIDDM2 - A1c of 8.5% - c/w ISS Class 1 obesity - BMI of 40 - Complicating medical care Migraine headaches - c/w Tylenol PRN GI prophylaxis - c/w Protonix (Corticosteroids / Weight based Lovenox prophylaxis) DVT prophylaxis - c/w Lovenox (weight based prophylactic dosing) Disposition: - Awaiting clinical improvement - anticipate DC within 24-48 hours, assuming oxygen requirements dropped to 2 L/min. - PT OT recommending home with services VS, I&O, 24H, Fishbone Vital Signs/I&O Vital Signs Date Time Temp Pulse Resp B/P (MAP) Pulse Ox O2 Delivery O2 Flow Rate FiO2 06/27/21 14:00 96.8 55 18 93/50 (64) 98 High Flow Cannula 6.0 06/22/21 16:00 50 I&O- Last 24 Hours up to 6 AM 06/27/21 06:00 Intake Total 960 ml Output Total 0 ml Balance 960 ml Laboratory Data 24H LABS Laboratory Tests 2 06/26/21 19:52: Bedside Glucose (Misc Panel) 374H 06/27/21 05:50: Immature Granulocyte % (Auto) 3.9H, Neutrophils (%) (Auto) 72.9H, Lymphocytes (%) (Auto) 15.0L, Monocytes (%) (Auto) 7.2, Eosinophils (%) (Auto) 0.7, Basophils (%) (Auto) 0.3, Neutrophils # (Auto) 11.0H, Lymphocytes # (Auto) 2.3, Monocytes # (Auto) 1.1H, Eosinophils # (Auto) 0.1, Basophils # (Auto) 0.0, Nucleated Red Blood Cells % (auto) 0.0, Anion Gap 5L, Glomerular Filtration Rate > 60.0, Calcium Level 8.4L, Magnesium Level 2.0, Total Bilirubin 0.5, Aspartate Amino Transf (AST/SGOT) 17, Alanine Aminotransferase (ALT/SGPT) 68, Alkaline Phosphatase 83, Total Protein 6.2L, Albumin 2.1L, Albumin/Globulin Ratio 0.5L 06/27/21 12:59: Bedside Glucose (Misc Panel) 123H 06/27/21 17:04: Bedside Glucose (Misc Panel) 172H CBC/BMP Laboratory Tests 10/14/21 05:50 Microbiology Microbiology 06/18/21 Respiratory Virus Panel (PCR) (MARCELO) - Final, Complete SARS-CoV-2 (COVID 19) 06/18/21 Blood Culture - Final, Complete NO GROWTH AFTER 5 DAYS 06/18/21 Blood Culture - Final, Complete NO GROWTH AFTER 5 DAYS PENG BLANCO MD Jun 27, 2021 18:18
[2021-06-27 19:19] VITALS: BP 97/52
[2021-06-27 19:21] VITALS: O2SAT 95
[2021-06-27] MEDS: MONTELUKAST 10 MG TAB PO SCH (20:58)
[2021-06-28] VITALS: O2SAT 98
[2021-06-28 04:00] VITALS: O2SAT 96
[2021-06-28 07:29] VITALS: O2SAT 96
[2021-06-28] MEDS ORDERED: predniSONE 50 MG TAB PO SCH (09:00)
[2021-06-28] MEDS: ATORVASTATIN 20 MG TAB PO SCH (09:01)
[2021-06-28] MEDS: PANTOPRAZOLE 40MG TAB (PROTONIX) PO SCH (09:01)
[2021-06-28] MEDS: ASPIRIN 81MG ENTERIC TABLET PO SCH (09:01)
[2021-06-28] MEDS: LEVOTHYROXINE 100MCG TABLET (0.1MG) PO SCH (09:01)
[2021-06-28] MEDS: HumaLOG INSULIN (NovoLOG) PER UNIT SC SCH (09:01)
[2021-06-28] MEDS: ENOXAPARIN 60MG/0.6ML SYRINGE (J1650 PER 10MG) SC SCH (09:01)
[2021-06-28] MEDS: guaiFENesin ER 600 MG TAB PO SCH (09:01)
[2021-06-28] MEDS: ESCITALOPRAM OXALATE 10 MG TAB (LEXAPRO) PO SCH (09:02)
[2021-06-28] MEDS ORDERED: PRED10TA2 PO ×2 (14:24→16:14)
[2021-06-28] MEDS ORDERED: ACET1TAB55 PO ×2 (14:24→16:14)
[2021-06-28] MEDS ORDERED: ASPI-551 PO ×2 (14:24→16:14)
[2021-06-28] MEDS ORDERED: MUCI600T31 PO ×2 (14:24→16:14)
[2021-06-28] MEDS ORDERED: PANT40TA29 PO ×2 (14:24→16:14)
[2021-06-28] MEDS ORDERED: COMBAER6 INH ×2 (14:55→16:14)
--- NOTE | 2021-07-09 11:44 | DS.PDOC ---
Discharge Summary General Date of Admission Jun 18, 2021 at 21:36 Date of Discharge 06/28/21 Discharge Summary PROCEDURES PERFORMED DURING STAY: [None]. ADMITTING DIAGNOSES: Sepsis 2/2 covid-19 Acute hypoxic respiratory failure 2/2 Covid-19 Migraines Essential HTN HFpEF Depression Hypothyroidism NIDDM Class 1 obesity DISCHARGE DIAGNOSES: Sepsis 2/2 covid-19 Acute hypoxic respiratory failure 2/2 Covid-19 Migraines Essential HTN HFpEF Depression Hypothyroidism NIDDM Class 1 obesity COMPLICATIONS/CHIEF COMPLAINT: Covid-19/ Sirs. HISTORY OF PRESENT ILLNESS: was not diagnosed against COVID-19; on Jun 07 she was diagnosed with COVID. Today she was brought to the ER EMS for evaluation of shortness of breath; her initial O2 sats were in the 80s on RA therefore she was started on CPAP en route to the hospital. At the time of my assessment she was also c/o cough, chest pain and diarrhea. She denies vomiting, losing her sense of taste, or having swelling of her legs. Her boyfriend also has COVID. HOSPITAL COURSE: Acute hypoxic respiratory failure - likely 2/2 COVID19 pneumonia, possibly 2/2 superimposed bacterial infection - Patient reports that she feels better. - s/p Vapotherm and CPAP - COVID19 positive on 06/07 - Imaging noted above - c/w Dexamethasone (9 days) and Baricitinib (8 days)) - Completed Ceftriaxone and Azithromycin (7 days) - c/w Incentive spirometry / Acapella / Mucinex - Pulmonology had evaluated patient earlier - have signed off - PT and OT - recommending home with services - continue prednisone taper on DC - c/w Home O2 at 2LPM HTN / Chronic HFpEF (Grade 1) - BP appears to be increasing; will continue to trend - Patient states takes lisinopril at home. Blood pressures have been appropriate, held. Depression - c/w Escitalopram Hypothyroidism - c/w Levothyroxine NIDDM2 - A1c of 8.5% - c/w ISS Class 1 obesity - BMI of 40 - Complicating medical care Migraine headaches - c/w Tylenol PRN GI prophylaxis - c/w Protonix (Corticosteroids / Weight based Lovenox prophylaxis) DVT prophylaxis - c/w Lovenox (weight based prophylactic dosing) DISCHARGE MEDICATIONS: Please see below. ALLERGIES: Please see below. PHYSICAL EXAMINATION ON DISCHARGE: VITAL SIGNS: please see below General: NAD, comfortable HEENT: PERRLA, EOMI, sclerae clear Neck: supple, normal ROM, no JVD Respiratory: Bilateral rhonchi with fair inspiratory effort, no wheezes no crackles. CVS: RRR, normal S1, S2, no murmurs Abdo: soft, no masses, no hepatosplenomegaly, BS+, no rebound tenderness Extremities: no edema, pulses 2+ MSK: no joint deformities, normal ROM Neuro: no focal neuro deficits, moving all 4 extremities, CN2-12 intact. Strength 5/5 in all 4 extremities. No nystagmus. Psych: calm, cooperative, AAO x 3 LABORATORY DATA: Please see below. IMAGING: CTA chest (06/19/21): IMPRESSION: 1. No CT evidence of pulmonary embolism or right heart strain. 2. Extensive diffuse bilateral lung infiltrates.Imaging features can be seen with COVID-19 pneumonia, though are nonspecific and can occur with a variety of infectious and noninfectious processes. (Reference: Abiodun) 3. Fatty infiltration of the liver. CXR (06/18/21): IMPRESSION: Diffuse significant bilateral multifocal infiltrates essentially unchanged. PROGNOSIS: good ACTIVITY: [As tolerated]. DIET: consistent carbohydrate DISCHARGE PLAN: DC home with home O2 with portability. Pulse oximeter. Prednisone taper. F/u with PCP 3-5 days. DISPOSITION: [address] [place] [address] Service. DISCHARGE INSTRUCTIONS: . Please follow-up with your primary care doctor within 3-5 days . Please taking medications as prescribed. . If you develop bleeding, chest pain, shortness of breath, seizures, nausea, fevers, or otherwise worsening of your symptoms, please call 911 or return to the nearest emergency room DISCHARGE CONDITION: [Stable]. TIME SPENT ON DISCHARGE: 35 minutes. Discharge Medications Scheduled Aspirin (Aspirin EC) 81 Mg Tablet.dr, 81 MG PO DAILY Atorvastatin Calcium (Atorvastatin Calcium) 20 Mg Tab, 20 MG PO DAILY, (Reported) Dulaglutide (Trulicity) 1.5 Mg/0.5 Ml Pen.injctr, 1.5 MG SC QWEEK, (Reported) SUNDAYS Escitalopram Oxalate (Lexapro) 20 Mg Tablet, 20 MG PO DAILY, (Reported) Guaifenesin (Mucinex) 600 Mg Tab.er.12h, 600 MG PO BID Ipratropium/Albuterol Sulfate (Combivent Respimat 20-100 Mcg) 4 Gm Mist.inhal, 1 PUFF INH QID Levothyroxine Sodium (Levothyroxine Sodium) 100 Mcg Tab, 100 MCG PO DAILY, (Reported) Montelukast Sodium (Singulair) 10 Mg Tab, 10 MG PO QHS, (Reported) Pantoprazole Sodium (Pantoprazole Sodium) 40 Mg Tablet.dr, 40 MG PO DAILY Prednisone (Prednisone) 10 Mg Tablet, 10 MG PO TAPER Take 4 tabs daily x 3 days, then 3 tabs daily x 3 days, then 2 tabs daily x 3 days, then 1 tab daily x 3 days and stop Scheduled PRN Acetaminophen (Acetaminophen) 325 Mg Tablet, 650 MG PO Q4H PRN for MILD PAIN or TEMP > 101 Allergies Coded Allergies: No Known Allergies (Unverified , 06/19/17) PENG BLANCO MD Jul 09, 2021 11:44
== END 2021-06-28 16:00 | disposition home health service (06) | DRG 720 ==
LOC: M ED 17:33 → M ED INP 21:36 → ENRESERV 06-19 02:55 → M 4MAIN 06-19 04:15 → M ICU 06-19 04:28 → M 4MAIN 06-22 19:11
PROVIDERS: ADMIT Internal Medicine; ATTEND Family Medicine
PROC: 3E0333Z Introduction of Anti-inflammatory into Peripheral Vein, Percutaneous Approach (ICD-10-PCS; principal; 2021-06-19)
DX: A41.9 Sepsis, unspecified organism (principal); U07.1 COVID-19; J96.01 Acute respiratory failure with hypoxia; J12.82 Pneumonia due to coronavirus disease 2019; I11.0 Hypertensive heart disease with heart failure; I50.32 Chronic diastolic (congestive) heart failure; Z68.41 Body mass index [BMI] 40.0-44.9, adult; E11.9 Type 2 diabetes mellitus without complications; E78.5 Hyperlipidemia, unspecified; E03.9 Hypothyroidism, unspecified; G43.909 Migraine, unspecified, not intractable, without status migrainosus; F32.9 Major depressive disorder, single episode, unspecified; E66.9 Obesity, unspecified; Z90.49 Acquired absence of other specified parts of digestive tract; Z98.42 Cataract extraction status, left eye; Z79.899 Other long term (current) drug therapy; K21.9 Gastro-esophageal reflux disease without esophagitis

== ENCOUNTER → 2021-07-18 | Outpatient (CLI) | payer OTHER ==
[~2021-07-18] MED LIST changes: +ASPI-551 PO; +COMBAER6 INH; +LEXA1TAB2 PO; +MUCI600T31 PO; +PANT40TA29 PO; +PRED10TA2 PO; +TRUL0.5I SC
--- NOTE | 2021-07-18 14:56 | REP ---
INDICATION: HYPOXIA. COMPARISON: Multiple the latest 06/19/2021 TECHNIQUE: PA and lateral FINDINGS: Once again, there are diffuse bilateral patchy interstitial and airspace opacities which do not appear to be significantly changed compared to the prior exam when the technical differences between the examinations are taken into consideration. The cardiomediastinal silhouette is stable. There is no evidence of an acute osseous abnormality. IMPRESSION: Diffuse opacities as described above <Electronically signed by Jasbir Carrington > 07/18/21 0622
[2021-07-18 17:53] LABS: BASO # 0.1 10^3/uL (0.0-0.2); BASO % 0.9 % (0.0-1.0); EOS # 0.4 10^3/uL (0.0-0.5); HEMATOCRIT 42.9 % (36.0-47.0); HEMOGLOBIN 13.5 g/dl (12.0-15.5); LYMPH % 33.9 % (24.0-44.0); MEAN CORPUSCULAR HEMOGLOBIN 29.2 pg (27.0-33.0); MEAN CORPUSCULAR HGB CONC 31.5 g/dl (32.0-36.5); MEAN CORPUSCULAR VOLUME 92.7 fl (80.0-96.0); MONO # 0.9 10^3/uL (0.0-0.8); MONO % 9.7 % (2.0-8.0); NEUTROPHILS # 4.5 10^3/uL (1.5-8.5); NEUTROPHILS % 50.9 % (36.0-66.0); PLATELET COUNT, AUTOMATED 319 10^3/uL (150-450); RED BLOOD COUNT 4.63 10^6/uL (4.00-5.40); WHITE BLOOD COUNT 8.9 10^3/uL (4.0-10.0)
[2021-07-18 18:31] LABS: CHOLESTEROL RISK RATIO 5.615 (<5); THYROID STIMULATING HORMONE 2.7 uIU/ML (0.358-3.740)
== END ==
LOC: M PLALAB 13:07
PROVIDERS: ATTEND Family Medicine
DX: R91.8 Other nonspecific abnormal finding of lung field (principal); R09.02 Hypoxemia; E03.9 Hypothyroidism, unspecified; E78.2 Mixed hyperlipidemia; D72.829 Elevated white blood cell count, unspecified

== ENCOUNTER → 2021-07-18 | Outpatient (CLI) | payer OTHER ==
--- NOTE | 2021-07-18 15:08 | REPMRS ---
Patient History The patient states she has not had a clinical breast exam in over a year. Patient is postmenopausal. No known family history of cancer. No Hormone Replacement Therapy Patient states no breast complaints today. Patient has signed MRS History Sheet. Digital Woman Screen Mammo: July 18, 2021 - Exam #: [id number] Bilateral CC and MLO view(s) were taken. Technologist: Denisse Rhoades, [employer] Prior study comparison: December 02, 2017, digital woman screen mammo performed at [facility] and [facility]. 2016, bilateral digital mammo screening bilat, performed at [facility]. FINDINGS: There are scattered fibroglandular densities. Screening. Digital screening (2D) mammography was performed bilaterally in the CC and MLO projections. Additionally, breast tomosynthesis (3D mammography) was performed bilaterally in the CC and MLO projections. Todays exam was compared to the prior exam/exams. By history, the patient has no complaints of a palpable breast abnormality or other significant breast complaints. The breasts are unchanged in size and shape. There are no kasia-soft tissue densities or spiculated masses. There is no internal architectural distortion. There are no suspicious kasia-calcific clusters. Skin thickening or nipple retraction is not present. IMPRESSION: BI-RADS Category 2- Benign Findings. There is no evidence of malignant alteration of the breasts. Followup examination recommended in one year. The Volpara volumetric breast density category is B, there are scattered areas of fibroglandular densities. This mammogram was read with the assistance of [employer],an FDA approved computer aided detection system for mammography. The lifetime Tyrer-Cuzick score is 7 % Negative x-ray reports should not delay surgical consultation if a dominant or clinically suspicious mass is present. Not all breast cancers can be identified by mammography. Therefore, we recommend that you continue to perform regular breast self-examination and physical examination and then promptly contact your physician of any concerns or changes. Adenosis and dense breasts may obscure an underlying neoplasm. Assessment: BI-RADS/ACR category 2 mammogram. Benign Findings. Recommendation Routine screening mammogram of both breasts in 1 year. Electronically Signed By: Jasbir Carrington DO 07/18/21 [id number]
== END ==
LOC: M WHC 13:51
PROVIDERS: ATTEND Family Medicine
DX: Z12.31 Encounter for screening mammogram for malignant neoplasm of breast (principal); Z78.0 Asymptomatic menopausal state

== ENCOUNTER → 2021-09-16 | Outpatient (CLI) | payer OTHER ==
--- NOTE | 2021-09-16 19:23 | REP ---
INDICATION: HYPOXEMIA COMPARISON: 07/18/2021 through 07/27/2018 TECHNIQUE: PA and lateral. FINDINGS: The cardiac silhouette is mildly enlarged. The lung castellanos demonstrate diffuse chronic interstitial changes and there is suspicion for superimposed airspace disease (left greater than right). No effusion. No pneumothorax. Skeletal structures intact. IMPRESSION: Chronic interstitial and fibrotic changes are suggested with superimposed airspace disease. If the patient remains symptomatic consider chest CT follow-up for further investigation. <Electronically signed by Shaheen Bustos > 09/16/21 [id number]
== END ==
LOC: M PLAIMG 11:01
PROVIDERS: ATTEND Family Medicine
DX: R09.02 Hypoxemia (principal); R93.89 Abnormal findings on diagnostic imaging of other specified body structures; Z86.16 Personal history of COVID-19

== ENCOUNTER → 2021-10-21 | Outpatient (CLI) | payer OTHER | LOC: M RAD 17:42 | PROVIDERS: ATTEND Internal Medicine Pulmonary Disease | DX: R91.8 Other nonspecific abnormal finding of lung field (principal) ==

== ENCOUNTER → 2021-10-25 | Outpatient (CLI) | payer OTHER ==
[2021-10-25 11:18] LABS: BLOOD UREA NITROGEN 11 MG/DL (7-18); CALCIUM LEVEL 9.1 MG/DL (8.8-10.2); CARBON DIOXIDE LEVEL 27 MEQ/L (21-32); CHLORIDE LEVEL 108 MEQ/L (98-107); FERRITIN 166 NG/ML (8-252); GLOMERULAR FILTRATION RATE > 60.0 (>45); GLUCOSE, FASTING 191 MG/DL (70-100); SODIUM LEVEL 142 MEQ/L (136-145)
[2021-10-25 12:16] LABS: HEMOGLOBIN A1c 7.9 %
== END ==
LOC: M PLALAB 07:56
PROVIDERS: ATTEND Family Medicine
DX: E11.69 Type 2 diabetes mellitus with other specified complication (principal); I10 Essential (primary) hypertension; E03.9 Hypothyroidism, unspecified; L65.9 Nonscarring hair loss, unspecified

== ENCOUNTER → 2022-02-07 | Outpatient (CLI) | payer OTHER | LOC: M PLALAB 13:17 | PROVIDERS: ATTEND Family Medicine | DX: E03.9 Hypothyroidism, unspecified (principal) ==

== ENCOUNTER → 2022-02-14 | Outpatient (CLI) | payer OTHER ==
[2022-02-14 18:51] LABS: HEMOGLOBIN A1c 6.7 %
== END ==
LOC: M PLALAB 09:30
PROVIDERS: ATTEND Family Medicine
DX: E11.69 Type 2 diabetes mellitus with other specified complication (principal)

== ENCOUNTER → 2022-08-22 | Outpatient (CLI) | payer OTHER ==
[2022-08-22 16:10] LABS: HEMOGLOBIN A1c 6.5 % (4.0-6.0)
[2022-08-22 16:15] LABS: ALBUMIN 3.5 G/DL (3.2-5.2); ALKALINE PHOSPHATASE 68 U/L (46-116); ALT/SGPT 20 U/L (7.0-40); AST/SGOT 13 U/L (<34); BILIRUBIN,TOTAL 0.4 MG/DL (0.3-1.2); BLOOD UREA NITROGEN 12 MG/DL (9-23); CALCIUM LEVEL 9.3 MG/DL (8.3-10.6); CARBON DIOXIDE LEVEL 30 MMOL/L (20-31); CHLORIDE LEVEL 103 MMOL/L (98-107); CHOLESTEROL LEVEL 240 MG/DL (<200); CHOLESTEROL RISK RATIO 5.86 (<5); CREATININE FOR GFR 0.91 MG/DL (0.55-1.30); GLOMERULAR FILTRATION RATE > 60.0 (>45); GLUCOSE, FASTING 120 MG/DL (74-106); HDL CHOLESTEROL 40.9 MG/DL (>40); LDL CHOLESTEROL 161.5 MG/DL (<100); NON-HDL-C 199 MG/DL; POTASSIUM SERUM 4.4 MMOL/L (3.5-5.1); SODIUM LEVEL 139 MMOL/L (136-145); TOTAL PROTEIN 6.8 G/DL (5.7-8.2); TRIGLYCERIDES LEVEL 188 MG/DL (<150)
[2022-08-22 16:16] LABS: THYROID STIMULATING HORMONE 0.288 uIU/ML (0.55-4.78)
== END ==
LOC: M PLALAB 12:21
PROVIDERS: ATTEND Physician Assistant
DX: E11.69 Type 2 diabetes mellitus with other specified complication (principal); E03.9 Hypothyroidism, unspecified

== ENCOUNTER → 2023-01-06 | Outpatient (CLI) | payer OTHER ==
[~2023-01-06] MED LIST changes: +MONT-5 PO; -SING10TA32 PO
== END ==
LOC: M CARPUL 15:13
PROVIDERS: ATTEND Physician Assistant
DX: R06.02 Shortness of breath (principal)

== ENCOUNTER → 2023-05-30 | Outpatient (CLI) | payer OTHER ==
[2023-05-30 09:47] LABS: BASO # 0.1 10^3/uL (0.0-0.2); BASO % 0.6 % (0.0-1.0); EOS # 0.5 10^3/uL (0.0-0.5); EOS % 5.5 % (0.0-3.0); HEMATOCRIT 42.7 % (36.0-47.0); HEMOGLOBIN 14.4 g/dl (12.0-15.5); LYMPH # 2.7 10^3/uL (1.5-5.0); MEAN CORPUSCULAR HEMOGLOBIN 29.7 pg (27.0-33.0); MEAN CORPUSCULAR HGB CONC 33.7 g/dl (32.0-36.5); MONO # 0.8 10^3/uL (0.0-0.8); MONO % 9.2 % (2.0-8.0); NEUTROPHILS # 4.3 10^3/uL (1.5-8.5); NEUTROPHILS % 52.3 % (36.0-66.0); PLATELET COUNT, AUTOMATED 293 10^3/uL (150-450); RED BLOOD COUNT 4.85 10^6/uL (4.00-5.40); WHITE BLOOD COUNT 8.3 10^3/uL (4.0-10.0)
[2023-05-30 10:12] LABS: LIPASE 60 U/L (12-53)
[2023-05-30 10:13] LABS: IRON (FE) 70 UG/DL (50-170); PERCENT SATURATION 26.4 % (13.2-45.0); TOTAL IRON BINDING CAPACITY 265 UG/DL (250-425)
[2023-05-30 10:14] LABS: ALBUMIN 3.5 G/DL (3.2-5.2); ALKALINE PHOSPHATASE 65 U/L (46-116); ALT/SGPT 21 U/L (7.0-40); AST/SGOT 19 U/L (<34); BILIRUBIN,TOTAL 0.8 MG/DL (0.3-1.2); BLOOD UREA NITROGEN 7 MG/DL (9-23); CALCIUM LEVEL 8.5 MG/DL (8.3-10.6); CARBON DIOXIDE LEVEL 27 MMOL/L (20-31); CHLORIDE LEVEL 106 MMOL/L (98-107); CHOLESTEROL LEVEL 135 MG/DL (<200); CHOLESTEROL RISK RATIO 3.62 (<5); CREATININE FOR GFR 0.89 MG/DL (0.55-1.30); GLOMERULAR FILTRATION RATE > 60.0 (>45); GLUCOSE, FASTING 99 MG/DL (74-106); HDL CHOLESTEROL 37.2 MG/DL (>40); LDL CHOLESTEROL 76.4 MG/DL (<100); NON-HDL-C 97.8 MG/DL; POTASSIUM SERUM 3.8 MMOL/L (3.5-5.1); SODIUM LEVEL 141 MMOL/L (136-145); TOTAL PROTEIN 6.4 G/DL (5.7-8.2); TRIGLYCERIDES LEVEL 107 MG/DL (<150)
[2023-05-30 10:17] LABS: FERRITIN 106.9 NG/ML (7.3-270.7); FREE T4 1.17 NG/DL (0.89-1.76); THYROID STIMULATING HORMONE 0.794 uIU/ML (0.55-4.78)
[2023-05-30 10:18] LABS: VITAMIN B12 LEVEL 324 PG/ML (211-911)
[2023-05-30 10:24] LABS: HEMOGLOBIN A1c 6.6 % (4.0-6.0)
== END ==
LOC: M LAB 09:18
PROVIDERS: ATTEND Physician Assistant
DX: R53.83 Other fatigue (principal); I10 Essential (primary) hypertension; E11.69 Type 2 diabetes mellitus with other specified complication; E78.2 Mixed hyperlipidemia; E03.9 Hypothyroidism, unspecified; K21.9 Gastro-esophageal reflux disease without esophagitis; R53.81 Other malaise

== ENCOUNTER → 2023-06-30 | Outpatient (REF) | payer OTHER | LOC: M SFHCPLAZ 17:17 | PROVIDERS: ATTEND Student in an Organized Health Care Education/Training Program | DX: R05.1 Acute cough (principal) ==

== ENCOUNTER → 2024-04-12 | Outpatient (CLI) | payer OTHER ==
[~2024-04-12] MED LIST changes: +DOXY-323 PO; -DOXY-443 PO
== END ==
LOC: M WHC 12:59
PROVIDERS: ATTEND Physician Assistant
DX: N85.00 Endometrial hyperplasia, unspecified (principal); R14.0 Abdominal distension (gaseous); R14.1 Gas pain

== ENCOUNTER → 2024-04-30 | Outpatient (CLI) | payer OTHER ==
[2024-04-30 11:04] LABS: BASO # 0.1 10^3/uL (0.0-0.2); BASO % 0.7 % (0.0-1.0); EOS # 0.2 10^3/uL (0.0-0.5); EOS % 2.6 % (0.0-3.0); HEMATOCRIT 42.6 % (36.0-47.0); HEMOGLOBIN 13.8 g/dl (12.0-15.5); LYMPH # 2.3 10^3/uL (1.5-5.0); LYMPH % 26.8 % (24.0-44.0); MEAN CORPUSCULAR HEMOGLOBIN 28.9 pg (27.0-33.0); MEAN CORPUSCULAR HGB CONC 32.4 g/dl (32.0-36.5); MEAN CORPUSCULAR VOLUME 89.3 fl (80.0-96.0); MONO # 0.6 10^3/uL (0.0-0.8); MONO % 6.5 % (2.0-8.0); NEUTROPHILS # 5.4 10^3/uL (1.5-8.5); NEUTROPHILS % 62.9 % (36.0-66.0); PLATELET COUNT, AUTOMATED 285 10^3/uL (150-450); RED BLOOD COUNT 4.77 10^6/uL (4.00-5.40); WHITE BLOOD COUNT 8.6 10^3/uL (4.0-10.0)
[2024-04-30 11:15] LABS: HEMOGLOBIN A1c 6.4 % (4.0-6.0)
[2024-04-30 11:29] LABS: CREATININE, URINE 161.3 MG/DL; LIPASE 54 U/L (12-53); MALB URINE SIEMENS < 3.0 MG/L; MAU/CREAT RATIO 1.8 MCG/MG (0.0-30.0)
[2024-04-30 11:31] LABS: ALBUMIN 3.4 G/DL (3.2-5.2); ALKALINE PHOSPHATASE 81 U/L (46-116); ALT/SGPT 16 U/L (7.0-40); AST/SGOT 17 U/L (<34); BILIRUBIN,TOTAL 0.8 MG/DL (0.3-1.2); BLOOD UREA NITROGEN 10 MG/DL (9-23); CALCIUM LEVEL 8.6 MG/DL (8.3-10.6); CARBON DIOXIDE LEVEL 26 MMOL/L (20-31); CHLORIDE LEVEL 106 MMOL/L (98-107); CREATININE FOR GFR 0.92 MG/DL (0.55-1.30); GLOMERULAR FILTRATION RATE > 60.0 (>45); GLUCOSE, FASTING 101 MG/DL (74-106); IRON (FE) 43 UG/DL (50-170); PERCENT SATURATION 14.6 % (13.2-45.0); POTASSIUM SERUM 4.4 MMOL/L (3.5-5.1); SODIUM LEVEL 139 MMOL/L (136-145); TOTAL IRON BINDING CAPACITY 294 UG/DL (250-425); TOTAL PROTEIN 6.6 G/DL (5.7-8.2)
[2024-04-30 11:32] LABS: FERRITIN 75.2 NG/ML (7.3-270.7); FREE T4 1.15 NG/DL (0.89-1.76)
[2024-04-30 11:33] LABS: TOTAL 25(OH) VITAMIN D 20.1 NG/ML (20.0-100.0); VITAMIN B12 LEVEL 306 PG/ML (211-911)
== END ==
LOC: M LAB 10:12
PROVIDERS: ATTEND Physician Assistant
DX: E11.69 Type 2 diabetes mellitus with other specified complication (principal); R14.0 Abdominal distension (gaseous); R14.1 Gas pain; E03.9 Hypothyroidism, unspecified; R53.83 Other fatigue

== ENCOUNTER 2024-06-09 06:05 | Day surgery (SDC) | payer OTHER ==
[~2024-06-09] VITALS: Ht 162.6 cm; Wt 106.5 kg
[~2024-06-09 06:05] MED LIST changes: -DOXY-323 PO; +DOXY-441 PO
[2024-06-09 07:15] LABS: HEMATOCRIT 43.3 % (36.0-47.0); HEMOGLOBIN 14.5 g/dl (12.0-15.5); MEAN CORPUSCULAR HEMOGLOBIN 29.5 pg (27.0-33.0); MEAN CORPUSCULAR HGB CONC 33.5 g/dl (32.0-36.5); PLATELET COUNT, AUTOMATED 288 10^3/uL (150-450); RED BLOOD COUNT 4.92 10^6/uL (4.00-5.40); WHITE BLOOD COUNT 8.2 10^3/uL (4.0-10.0)
[2024-06-09] MEDS ORDERED: fentaNYL 100 MCG/2 ML INJECTION As Ordered ONE (07:53)
[2024-06-09] MEDS ORDERED: dexmedeTOMIDine (4MCG/ML)200MCG/50ML BTL (PRECEDEX) As Ordered ONE (07:53)
[2024-06-09] MEDS ORDERED: propofoL 200 MG/20 ML VIAL As Ordered ONE (07:53)
[2024-06-09] MEDS ORDERED: MIDAZOLAM INJ 2MG/2ML VIAL As Ordered ONE (07:53)
[2024-06-09] MEDS ORDERED: ONDANSETRON 4MG 2ML VIAL As Ordered ONE (07:53)
[2024-06-09] MEDS ORDERED: LIDOCAINE 2% 100MG/5ML SDV (FOR ANES.) As Ordered ONE (07:53)
[2024-06-09] MEDS ORDERED: ACETAMINOPHEN 1000MG 100ML IV BAG As Ordered ONE (07:57)
[2024-06-09] MEDS ORDERED: oxyCODONE 5MG TAB PO PRN (08:25)
[2024-06-09] MEDS ORDERED: fentaNYL 100 MCG/2 ML INJECTION IV PRN (08:25)
[2024-06-09] MEDS ORDERED: HYDROMORPHONE HCL 0.5 MG/ 0.5 ML SYRINGE IV PRN (08:25)
[2024-06-09] MEDS ORDERED: ONDANSETRON 4MG 2ML VIAL IV PRN (08:25)
[2024-06-09] MEDS ORDERED: LR 1,000 ML IV SCH (08:25)
[2024-06-09 09:50] VITALS: BP 138/68; TEMP 97.2; O2SAT 96
[2024-06-09] MEDS ORDERED: KETOROLAC 30 MG/ML 1ML VIAL IV SCH (12:00)
== END 2024-06-09 10:01 | disposition home or self-care (01) ==
LOC: M SDC 06:05
PROVIDERS: ATTEND Obstetrics & Gynecology
DX: N84.0 Polyp of corpus uteri (principal); Z68.41 Body mass index [BMI] 40.0-44.9, adult; R06.83 Snoring; J30.9 Allergic rhinitis, unspecified; Z88.8 Allergy status to other drugs, medicaments and biological substances; Z79.899 Other long term (current) drug therapy
CPT/HCPCS: 36415; 58558; 85027; 86850; 86900; 86901; 88305; J0131; J1100; J2250; J2405; J3010

== ENCOUNTER → 2024-10-28 | Outpatient (CLI) | payer MEDICARE ==
[2024-10-28 12:07] LABS: BASO # 0.1 10^3/uL (0.0-0.2); BASO % 0.5 % (0.0-1.0); EOS # 0.2 10^3/uL (0.0-0.5); EOS % 1.6 % (0.0-3.0); HEMATOCRIT 42.6 % (36.0-47.0); HEMOGLOBIN 14.1 g/dl (12.0-15.5); LYMPH # 3.1 10^3/uL (1.5-5.0); LYMPH % 33.2 % (24.0-44.0); MEAN CORPUSCULAR HEMOGLOBIN 29.6 pg (27.0-33.0); MEAN CORPUSCULAR HGB CONC 33.1 g/dl (32.0-36.5); MEAN CORPUSCULAR VOLUME 89.3 fl (80.0-96.0); MONO # 0.6 10^3/uL (0.0-0.8); MONO % 6.3 % (2.0-8.0); NEUTROPHILS # 5.5 10^3/uL (1.5-8.5); NEUTROPHILS % 58.2 % (36.0-66.0); PLATELET COUNT, AUTOMATED 364 10^3/uL (150-450); RED BLOOD COUNT 4.77 10^6/uL (4.00-5.40); WHITE BLOOD COUNT 9.4 10^3/uL (4.0-10.0)
[2024-10-28 12:28] LABS: HEMOGLOBIN A1c 8.5 % (4.0-6.0)
[2024-10-28 12:29] LABS: THYROID STIMULATING HORMONE 15.644 uIU/ML (0.55-4.78); TOTAL IRON BINDING CAPACITY 287 UG/DL (250-425)
[2024-10-28 12:30] LABS: ALBUMIN 3.4 G/DL (3.2-5.2); ALKALINE PHOSPHATASE 90 U/L (35-104); ALT/SGPT 19 U/L (7.0-40); AST/SGOT 13 U/L (<34); BILIRUBIN,DIRECT 0.1 MG/DL (<0.4); BILIRUBIN,TOTAL 0.5 MG/DL (0.3-1.2); BLOOD UREA NITROGEN 10 MG/DL (9-23); CALCIUM LEVEL 8.8 MG/DL (8.3-10.6); CARBON DIOXIDE LEVEL 26 MMOL/L (20-31); CHLORIDE LEVEL 102 MMOL/L (98-107); CHOLESTEROL LEVEL 215 MG/DL (<200); CHOLESTEROL RISK RATIO 4.63 (<5); CREATININE FOR GFR 0.86 MG/DL (0.55-1.30); GLOMERULAR FILTRATION RATE > 60.0 (>45); GLUCOSE, FASTING 239 MG/DL (74-106); HDL CHOLESTEROL 46.4 MG/DL (>40); IRON (FE) 50 UG/DL (50-170); LDL CHOLESTEROL 131.8 MG/DL (<100); NON-HDL-C 168.6 MG/DL; PERCENT SATURATION 17.4 % (13.2-45.0); POTASSIUM SERUM 4.1 MMOL/L (3.5-5.1); SODIUM LEVEL 137 MMOL/L (136-145); TOTAL PROTEIN 6.9 G/DL (5.7-8.2); TRIGLYCERIDES LEVEL 184 MG/DL (<150)
[2024-10-28 12:31] LABS: FREE T4 0.94 NG/DL (0.89-1.76); VITAMIN B12 LEVEL 421 PG/ML (211-911)
== END ==
LOC: M PLALAB 08:59
PROVIDERS: ATTEND Student in an Organized Health Care Education/Training Program
DX: Z00.00 Encounter for general adult medical examination without abnormal findings (principal); I10 Essential (primary) hypertension; E78.2 Mixed hyperlipidemia; E11.69 Type 2 diabetes mellitus with other specified complication; E03.9 Hypothyroidism, unspecified; D64.9 Anemia, unspecified; E56.9 Vitamin deficiency, unspecified; Z79.899 Other long term (current) drug therapy